=== PATIENT | male | born 1965 | race Caucasian/White ===

== ENCOUNTER 2019-02-02 11:16 | Inpatient (IN) | payer MEDICAID ==
[~2019-02-02] VITALS: Ht 170.2 cm; Wt 81.5 kg
[2019-02-02] MEDS ORDERED: LORAZEPAM 2 MG INJ IV STA (11:31)
[2019-02-02] MEDS ORDERED: SOD CHLORIDE 0.9% 1,000 ML IV STA (11:31)
--- NOTE | 2019-02-02 13:08 | ERD ---
ER Documentation Chief Complaint Chief Complaint biba possible etoh, found sitting in truck family called HPI 53-year-old male brought to the emergency department by paramedics with concerns over alcohol utilization. Patient is a very poor historian. According to the paramedics, patient's been drinking alcohol heavily. It is unclear when the patient's last intake was. Patient provides no further insight and appears unable to provide any significant history. ROS All systems reviewed and are negative except as per history of present illness. PMhx/Soc Medical and Surgical Hx: pt denies Medical Hx, pt denies Surgical Hx Hx Alcohol Use: Yes Hx Substance Use: No Hx Tobacco Use: No Smoking Status: Former smoker Physical Exam Vitals Vital Signs Date Temp Pulse Resp B/P (MAP) Pulse Ox O2 O2 Flow FiO2 Time Delivery Rate 02/02/19 98.9 67 18 156/95 100 11:31 (115) Physical Exam GENERAL: Disheveled male. He is altered. HEENT: Pupils equal, round, and reactive to light. EOMI. There is no scleral icterus. NECK: C-spine is soft and supple, there is no meningismus. There is no cervical lymphadenopathy. LUNGS: Clear to auscultation bilaterally. There are no rales, wheezes or rhonchi. HEART: Regular rate and rhythm, no murmurs, clicks, rubs or gallops. ABDOMEN: Soft, non-tender, non-distended. There are bowel sounds in all four quadrants. No rebound or guarding. EXTREMITIES: There is no peripheral cyanosis or edema. No focal swelling or erythema. NEURO: The patient moves all four extremities with 5/5 strength. Cranial nerves II - XII are intact. Patient is awake and follows commands. He has a resting tremor. SKIN: There is no apparent rash or petechiae. HEME/LYMPHATIC: There is no evidence of excessive bruising or lymphedema. PSYCHIATRIC: The patient does not appear anxious or depressed. Result Diagram: 02/02/19 1208 02/02/19 1208 Results 24 hrs Laboratory Tests Test 02/02/19 12:07 02/02/19 12:08 Urine Color NADIA Urine Clarity CLEAR Urine pH 7.0 Urine Specific [place] 1.027 Urine Ketones 1+ mg/dL Urine Nitrite NEGATIVE mg/dL Urine Bilirubin NEGATIVE mg/dL Urine Urobilinogen 2+ mg/dL Urine Leukocyte Esterase NEGATIVE Gilbert/ul Urine Microscopic RBC 41 /HPF Urine Microscopic WBC 2 /HPF Urine Hemoglobin 2+ mg/dL Urine Glucose 3+ mg/dL Urine Total Protein 1+ mg/dl White Blood Count 3.9 10^3/ul Red Blood Count 3.39 10^6/ul Hemoglobin 9.6 g/dl Hematocrit 29.7 % Mean Corpuscular Volume 87.6 fl Mean Corpuscular Hemoglobin 28.3 pg Mean Corpuscular Hemoglobin Concent 32.3 g/dl Red Cell Distribution Width 21.7 % Platelet Count 23 10^3/UL Mean Platelet Volume fl Immature Granulocytes % 0.800 % Neutrophils % 83.0 % Segmented Neutrophils % (Manual) 89 % Band Neutrophils % (Manual) 4 % Lymphocytes % 6.4 % Lymphocytes % (Manual) 4 % Monocytes % 9.5 % Monocytes % (Manual) 3 % Eosinophils % 0.0 % Basophils % 0.3 % Nucleated Red Blood Cells % 1 % Immature Granulocytes # 0.030 10^3/ul Neutrophils # 3.2 10^3/ul Neutrophils # (Manual) 3.5 10^3/ul Band Neutrophils # 0.1 10^3/ul Lymphocytes (Manual) 0.1 10^3/ul Lymphocytes # 0.3 10^3/ul Monocytes # 0.4 10^3/ul Monocytes # (Manual) 0.1 10^3/ul Eosinophils # 0.0 10^3/ul Basophils # 0.0 10^3/ul Nucleated Red Blood Cells # 0.0 10^3/ul Pathologist Review (Hematology) YES Platelet Estimate DECREASED Polychromasia 1+ Hypochromasia 3+ Anisocytosis 1+ Macrocytosis 1+ Sodium Level 141 mmol/L Potassium Level 3.5 mmol/L Chloride Level 106 mmol/L Carbon Dioxide Level 26 mmol/L Anion Gap 9 Blood Urea Nitrogen 16 mg/dl Creatinine 0.51 mg/dl Est Glomerular Filtrat Rate mL/min > 60 mL/min Glucose Level 192 mg/dl Calcium Level 8.7 mg/dl Total Bilirubin 3.9 mg/dl Direct Bilirubin 0.90 mg/dl Indirect Bilirubin 3.0 mg/dl Aspartate Amino Transf (AST/SGOT) 161 IU/L Alanine Aminotransferase (ALT/SGPT) 80 IU/L Alkaline Phosphatase 179 IU/L Total Protein 7.2 g/dl Albumin 3.5 g/dl Globulin 3.70 g/dl Albumin/Globulin Ratio 0.94 Salicylates Level < 1.0 mg/dl Acetaminophen Level < 10.0 ug/ml Ethyl Alcohol Level 13.0 mg/dl Current Medications Medications Dose Sig/Carol Start Time Status Last (Trade) Ordered Route PRN Stop Time Admin Dose Reason Admin Sodium 1,000 ml @ Q1H STAT 02/02/19 DC 02/02/19 Chloride 1,000 mls/hr IV 11:31 02/02/19 12:37 12:30 Lorazepam 1 mg ONCE STAT 02/02/19 DC 02/02/19 (Ativan) IV 11:31 02/02/19 12:37 11:32 Procedures/MDM Patient was taken to a room, seen and evaluated. Comfort measures were initiated. Diagnostic tests were ordered and reviewed. 3 LEAD RHYTHM STRIP: Normal sinus rhythm without ectopy RADIOLOGY: Reviewed with the radiologist CONSULTATION: Hospitalist was notified for admission REEVALUATION: 1300: Diagnostic tests were appreciated. Patient was reevaluated. He continued to have a resting tremor did not appear able to take care of himself decision was made to admit him to the hospital. MEDICAL DECISION MAKIN-year-old male presents the emergency department with what appears to be severe alcohol withdrawal. This time, I am not comfortable that he is able to care for himself despite Ativan and supportive care in the emergency department. Patient will be admitted for further supportive management. Departure Diagnosis: Primary Impression: Alcohol withdrawal Condition: JASMEET Granados Feb 02, 2019 13:07
[2019-02-02] MEDS ORDERED: NACL 0.9% 3 ML SYG IV SCH (15:30)
[2019-02-02] MEDS ORDERED: ONDANSETRON 4 MG INJ IV PRN (15:30)
[2019-02-02] MEDS ORDERED: MAGNESIUM HYDROXIDE 30ML CUP PO PRN (15:30)
[2019-02-02] MEDS ORDERED: DOCUSATE SODIUM 100 MG CAP PO PRN (15:30)
[2019-02-02] MEDS ORDERED: ACETAMINOPHEN 325 MG TAB PO PRN (15:30)
--- NOTE | 2019-02-02 15:47 | HP ---
Date/Time of Note Date/Time of Note DATE: 02/02/19 TIME: 15:35 Assessment/Plan VTE Prophylaxis SCD applied (from Nsg): Yes Pharmacological prophylaxis: NA/contraindicated Pharm contraindication: thrombocytopenia Lines/Catheters IV Catheter Type (from Nrsg): Saline Lock Assessment/Plan Assessment/Plan 1. Acute alcohol intoxication - will start banana bag, IV, and Librium given risk of withdrawal symptoms - monitor for DTs - Ativan PRN - will supervisor counseling and guidance about importance of cessation when more sober - ETOH levels noted 2. Alcoholic hepatitis - LFT elevation consistent with etoh abuse. AST>ALT - will check hepatitis panel - RUQ US to assess for cirrhosis 3. Pancytopenia - most likely has cirrhosis - no yobani bleeding appreciated. No need to transfuse at this time until plt drop below 10K or actively bleeding - will check iron levels 4. Diet - cardiac 5. DVT ppx - SCD 6. GI ppx - PPI 7. Disposition - Will admit to med surg for close monitoring of alcohol withdrawal and DTs. Patient also found with anemia and severe thrombocytopenia which will need to be monitored and transfused if hgb <7 and plt <10K or actively bleeding Result Diagram: 02/02/19 1208 02/02/19 1208 Results 24hrs Laboratory Tests Test 02/02/19 12:07 02/02/19 12:08 Urine Color NADIA Urine Clarity CLEAR Urine pH 7.0 Urine Specific [place] 1.027 Urine Ketones 1+ H Urine Nitrite NEGATIVE Urine Bilirubin NEGATIVE Urine Urobilinogen 2+ H Urine Leukocyte Esterase NEGATIVE Urine Microscopic RBC 41 H Urine Microscopic WBC 2 Urine Hemoglobin 2+ H Urine Glucose 3+ H Urine Total Protein 1+ H Urine Opiates Screen Negative Urine Barbiturates Negative Urine Amphetamines Screen Negative Urine Benzodiazepines Screen Negative Urine Cocaine Screen Negative Urine Cannabinoids Negative White Blood Count 3.9 L Red Blood Count 3.39 L Hemoglobin 9.6 L Hematocrit 29.7 L Mean Corpuscular Volume 87.6 Mean Corpuscular Hemoglobin 28.3 L Mean Corpuscular Hemoglobin Concent 32.3 Red Cell Distribution Width 21.7 H Platelet Count 23 *L Mean Platelet Volume Immature Granulocytes % 0.800 H Neutrophils % 83.0 H Segmented Neutrophils % (Manual) 89 H Band Neutrophils % (Manual) 4 Lymphocytes % 6.4 L Lymphocytes % (Manual) 4 L Monocytes % 9.5 Monocytes % (Manual) 3 Eosinophils % 0.0 Basophils % 0.3 Nucleated Red Blood Cells % 1 H Immature Granulocytes # 0.030 Neutrophils # 3.2 Neutrophils # (Manual) 3.5 Band Neutrophils # 0.1 Lymphocytes (Manual) 0.1 L Lymphocytes # 0.3 L Monocytes # 0.4 Monocytes # (Manual) 0.1 L Eosinophils # 0.0 Basophils # 0.0 Nucleated Red Blood Cells # 0.0 Pathologist Review (Hematology) YES Platelet Estimate DECREASED Polychromasia 1+ Hypochromasia 3+ Anisocytosis 1+ Macrocytosis 1+ Sodium Level 141 Potassium Level 3.5 Chloride Level 106 Carbon Dioxide Level 26 Anion Gap 9 Blood Urea Nitrogen 16 Creatinine 0.51 L Est Glomerular Filtrat Rate mL/min > 60 Glucose Level 192 Calcium Level 8.7 Total Bilirubin 3.9 H Direct Bilirubin 0.90 H Indirect Bilirubin 3.0 H Aspartate Amino Transf (AST/SGOT) 161 H Alanine Aminotransferase (ALT/SGPT) 80 H Alkaline Phosphatase 179 H Total Protein 7.2 Albumin 3.5 Globulin 3.70 H Albumin/Globulin Ratio 0.94 Salicylates Level < 1.0 L Acetaminophen Level < 10.0 L Ethyl Alcohol Level 13.0 H HPI/ROS Admit Date/Time Admit Date/Time 02/02/19 1530 Hx of Present Illness 53 yo M with no reported PMH presented to ED after found in his truck by family with suspicion of being intoxicated. Patient admits to drinking alcohol this am but unable to understand further information given patient continues to mumble. Patient denies drinking alcohol daily or any other substance use. 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 Admits to feeling restless and has been burping with small amount of vomit but denies any nausea. Patient denies any chest pain, shortness of breath, dizziness, palpitations, abdominal pain, or urinary issues. ROS All 12 systems reviewed and pertinent positives as per HPI. All others negative. Constitutional: fatigue; No chills, No nausea Eyes: No discharge ENT: No discharge Respiratory: No cough, No shortness of breath, No sputum, No wheezing Cardiovascular: No chest pain, No lightheadedness, No palpitations Gastrointestinal: vomiting; No pain, No constipation, No diarrhea, No nausea Genitourinary: no complaints Musculoskeletal: no complaints Skin: No bruising, No laceration, No rash Neurologic: confusion; No dizziness, No focal-weakness, No syncope Endocrine: no complaints Lymphatic: no complaints Psychological: confusion Immunologic: no complaints PMH/Family/Social Past Medical History Medical History: no pertinent history Coded Allergies: No Known Allergy (Unverified , 02/02/19) Past Surgical History Past Surgical Hx: no surgical history Family History Significant Family History: no pertinent family hx Social History Alcohol Use: heavy Smoking Status: Former smoker Drug Use: none Exam/Review of Systems Vital Signs Vitals Vital Signs Date Temp Pulse Resp B/P (MAP) Pulse Ox O2 O2 Flow FiO2 Time Delivery Rate 02/02/19 58 18 139/60 100 Room Air 13:00 (86) 02/02/19 98.9 11:31 Exam Exam General: Patient is laying in bed, tremulous, mumbling. answering simple questions appropriately. disheveled Head: Normocephalic atraumatic Eyes: EOMI, pupils reactive to light. mild scleral icterus Neck: Supple, nontender, midline Respiratory: Clear to auscultation bilaterally. no wheezing or rhonchi Cardiovascular: S1, S2, regular rate and rhythm,, no obvious murmurs Gastrointestinal: soft, non-tender to palpation, nondistended, bowel sounds heard. Neurological: Moves all extremities spontaneously Skin: No new skin lesions. Additional Comments No home medications PROCEDURE: CT Brain without contrast. CLINICAL INDICATION: Medical clearance. TECHNIQUE: A CT of the brain without contrast was performed utilizing axial sections from the skull base through the vertex. One or more the following does reduction techniques were utilized: Automated exposure control, adjustment of the mA/ or kV according to patient's size, or use of iterative reconstruction technique. Total exam CTDIvol is 39 MGy and DLP is 634 mGy-cm. DICOM images are available. COMPARISON: None available. FINDINGS: The ventricles and sulci are mildly prominent indicative of volume loss. There is no intracranial hemorrhage, mass effect or midline shift. No abnormal intra- axial or extra-axial fluid collections are seen. The amezcua/white matter differentiation is preserved. There are mild foci of hypoattenuation in the white matter, which are nonspecific in etiology but likely reflect chronic small vessel ischemic changes. There are mild intracranial vascular calcifications consistent with atherosclerosis. The visualized paranasal sinuses are essentially clear. IMPRESSION: 1. No acute intracranial hemorrhage, transcortical infarction or mass effect. 2. Mild chronic small vessel ischemic changes. 3. Mild generalized cerebral volume loss. RPTAT: HH .Anna Miller MD, Date Time Electronically viewed and signed by .Anna Miller MD, on 02/02/2019 12:23 LYNNETTE RILEY MD Feb 02, 2019 15:47
[2019-02-02] MEDS: CHLORDIAZEPOXIDE 25 MG CAP PO SCH ×2 (15:58→22:46)
[2019-02-02] MEDS: SOD CHLORIDE 0.9% 1,000 ML IV SCH (15:58)
[2019-02-02] MEDS ORDERED: hydrALAzine 20 MG INJ IV PRN (16:00)
[2019-02-02] MEDS: MULTIVITAMINS 10 ML, THIAMINE 100 MG, FOLIC ACID 1 MG in SOD CHLORIDE 0.9% 1,000 ML IVPB SCH (16:19)
[2019-02-02 17:45] VITALS: BP 139/66; PULSE 55; RESP 16
[2019-02-02 18:00] VITALS: Ht 170.2 cm; Wt 81.5 kg
[2019-02-02 19:36] VITALS: BP 133/70; PULSE 66; RESP 16
[2019-02-02] MEDS: LORAZEPAM 2 MG INJ IV PRN (19:39)
[2019-02-03] MEDS: SOD CHLORIDE 0.9% 1,000 ML IV SCH ×4 (01:20→21:20)
[2019-02-03] MEDS: PANTOPRAZOLE IV 80 MG in SOD CHLORIDE 0.9% 100 ML IV SCH ×3 (01:36→21:59)
[2019-02-03] MEDS: LORAZEPAM 2 MG INJ IV PRN (01:47)
[2019-02-03 02:44] VITALS: BP 140/75; PULSE 70; RESP 16
[2019-02-03] MEDS ORDERED: PANTOPRAZOLE 40 MG INJ IV SCH (06:00)
[2019-02-03 08:05] VITALS: BP 143/72; PULSE 74; RESP 18
[2019-02-03] MEDS: MULTIVITAMINS 10 ML, THIAMINE 100 MG, FOLIC ACID 1 MG in SOD CHLORIDE 0.9% 1,000 ML IVPB SCH (08:33)
[2019-02-03] MEDS: CHLORDIAZEPOXIDE 25 MG CAP PO SCH ×3 (08:33→22:30)
[2019-02-03] MEDS ORDERED: MULTIVITAMINS 10 ML, THIAMINE 100 MG, FOLIC ACID 1 MG in SOD CHLORIDE 0.9% 1,000 ML IVPB SCH (09:00)
[2019-02-03] MEDS ORDERED: POTASSIUM CHLORIDE (SR) 20 MEQ TAB PO STA (09:03)
--- NOTE | 2019-02-03 09:05 | PN ---
Date/Time of Note Date/Time of Note DATE: 02/03/19 TIME: 09:05 Assessment/Plan VTE Prophylaxis Risk score (from [facility] [place])>0 risk: 3 SCD applied (from [facility] [place]): Yes Pharmacological prophylaxis: NA/contraindicated Pharm contraindication: thrombocytopenia Lines/Catheters IV [facility] Saline Lock Urinary Cath still in place: No Assessment/Plan Assessment/Plan 1. Acute alcohol intoxication - Continue current treatment and monitor for DTS - Will continue Librium taper and deescalate to BID tomorrow - Ativan PRN - cessation counseling offered but patient still appears to be detoxing - ETOH levels noted 2. Alcoholic hepatitis - LFT elevation consistent with etoh abuse but trending down today - hepatitis panel negative - RUQ US shows severe hepatic steatosis 3. Anemia, ?blood loss - patient admitted to hematemesis prior to admission but denies any currently bleeding - GI consultation placed for possible EGD to assess - no need for transfusion at this time - iron levels noted 4. Severe thrombocytopenia - plt 22 this am but no yobani bleeding appreciated. Will transfuse if active bleeding appreciated or platelets drop below 10K - continue monitoring at this time. Liver failure is most likely etiology 5. hypokalemia - replaced 6. Disposition - GI consultation placed give patients reported hematemesis - Continue alcohol withdrawal treatment Result Diagram: 02/03/19 0558 02/03/19 0558 Results 24hrs Laboratory Tests Test 02/02/19 12:07 02/02/19 12:08 02/02/19 23:04 02/03/19 05:58 Urine Color NADIA Urine Clarity CLEAR Urine pH 7.0 Urine Specific [place] 1.027 Urine Ketones 1+ H Urine Nitrite NEGATIVE Urine Bilirubin NEGATIVE Urine Urobilinogen 2+ H Urine Leukocyte Esterase NEGATIVE Urine Microscopic RBC 41 H Urine Microscopic WBC 2 Urine Hemoglobin 2+ H Urine Glucose 3+ H Urine Total Protein 1+ H Iron Level 250 H Total Iron Binding 293 Capacity Percent Iron Saturation 85 H Urine Opiates Screen Negative Urine Barbiturates Negative Urine Amphetamines Negative Screen Urine Benzodiazepines Negative Screen Urine Cocaine Screen Negative Urine Cannabinoids Negative Hepatitis B Surface NEGATIVE Antigen Hepatitis B Core NEGATIVE Total Antibody Hepatitis C Antibody NEGATIVE White Blood Count 3.9 L 4.6 L 3.4 #L Red Blood Count 3.39 L 2.91 L 2.80 L Hemoglobin 9.6 L 8.5 L 8.2 L Hematocrit 29.7 L 25.7 L 25.0 L Mean Corpuscular Volume 87.6 88.3 89.3 Mean Corpuscular 28.3 L 29.2 29.3 Hemoglobin Mean Corpuscular 32.3 33.1 32.8 Hemoglobin Concent Red Cell Distribution 21.7 H 21.7 H 21.9 H Width Platelet Count 23 *L 24 *L 22 *L Mean Platelet Volume Immature Granulocytes % 0.800 H 0.600 H 0.600 H Neutrophils % 83.0 H 81.7 H Segmented Neutrophils 89 H 78 H % (Manual) Band Neutrophils % 4 2 (Manual) Lymphocytes % 6.4 L 6.7 L Lymphocytes % (Manual) 4 L 16 Monocytes % 9.5 10.6 Monocytes % (Manual) 3 3 Eosinophils % 0.0 0.2 Basophils % 0.3 0.2 Nucleated Red Blood 1 H 0.4 H 1 H Cells % Immature Granulocytes # 0.030 0.030 0.020 Neutrophils # 3.2 3.8 Neutrophils # (Manual) 3.5 2.7 Band Neutrophils # 0.1 0.0 Lymphocytes (Manual) 0.1 L 0.5 L Lymphocytes # 0.3 L 0.3 L Monocytes # 0.4 0.5 Monocytes # (Manual) 0.1 L 0.1 L Eosinophils # 0.0 0.0 Basophils # 0.0 0.0 Nucleated Red Blood 0.0 0.0 Cells # Pathologist YES Review (Hematology) Platelet Estimate DECREASED DECREASED Polychromasia 1+ 1+ Hypochromasia 3+ 1+ Anisocytosis 1+ 2+ Macrocytosis 1+ 2+ Sodium Level 141 141 Potassium Level 3.5 3.3 L Chloride Level 106 111 H Carbon Dioxide Level 26 25 Anion Gap 9 5 Blood Urea Nitrogen 16 15 Creatinine 0.51 L 0.54 L Est Glomerular Filtrat > 60 > 60 Rate mL/min Glucose Level 192 129 # Calcium Level 8.7 8.2 L Total Bilirubin 3.9 H 2.4 H Direct Bilirubin 0.90 H 0.20 # Indirect Bilirubin 3.0 H 2.2 H Aspartate Amino 161 H 106 H Transf (AST/SGOT) Alanine 80 H 62 Aminotransferase (ALT/SG PT) Alkaline Phosphatase 179 H 140 H Total Protein 7.2 6.1 # Albumin 3.5 2.8 L Globulin 3.70 H 3.30 H Albumin/Globulin Ratio 0.94 0.84 Salicylates Level < 1.0 L Acetaminophen Level < 10.0 L Ethyl Alcohol Level 13.0 H Basophils % (Manual) 1 Basophils # (Manual) 0.0 Target Cells 1+ Magnesium Level 2.0 Subjective 24 Hr Interval Summary Free Text/Dictation Patient is complaining of feeling weak this am. Admitted to hematemesis prior to admission when discussed pancytopenia. Exam/Review of Systems Exam Vitals Vital Signs Date Temp Pulse Resp B/P (MAP) Pulse Ox O2 O2 Flow FiO2 Time Delivery Rate 02/03/19 98.6 74 18 143/72 98 Room Air 08:05 (95) Intake and Output 02/02/19 02/02/19 02/03/19 1515:00 23:00 07:00 IntakeIntake Total 100 ml 2161.2 ml OutputOutput Total 400 ml BalanceBalance -300 ml 2161.2 ml Exam General: Patient is laying in bed, answering questions appropriately. periods of confusion Eyes: EOMI, pupils reactive to light. mild scleral icterus Neck: Supple, nontender, midline Respiratory: Clear to auscultation bilaterally. no wheezing or rhonchi Cardiovascular: S1, S2, regular rate and rhythm,, no obvious murmurs Gastrointestinal: soft, non-tender to palpation, nondistended, bowel sounds heard. Neurological: Moves all extremities spontaneously Skin: No new skin lesions. Results Results 24hrs Laboratory Tests Test 02/02/19 12:07 02/02/19 12:08 02/02/19 23:04 02/03/19 05:58 Urine Color NADIA Urine Clarity CLEAR Urine pH 7.0 Urine Specific [place] 1.027 Urine Ketones 1+ H Urine Nitrite NEGATIVE Urine Bilirubin NEGATIVE Urine Urobilinogen 2+ H Urine Leukocyte Esterase NEGATIVE Urine Microscopic RBC 41 H Urine Microscopic WBC 2 Urine Hemoglobin 2+ H Urine Glucose 3+ H Urine Total Protein 1+ H Iron Level 250 H Total Iron Binding 293 Capacity Percent Iron Saturation 85 H Urine Opiates Screen Negative Urine Barbiturates Negative Urine Amphetamines Negative Screen Urine Benzodiazepines Negative Screen Urine Cocaine Screen Negative Urine Cannabinoids Negative Hepatitis B Surface NEGATIVE Antigen Hepatitis B Core NEGATIVE Total Antibody Hepatitis C Antibody NEGATIVE White Blood Count 3.9 L 4.6 L 3.4 #L Red Blood Count 3.39 L 2.91 L 2.80 L Hemoglobin 9.6 L 8.5 L 8.2 L Hematocrit 29.7 L 25.7 L 25.0 L Mean Corpuscular Volume 87.6 88.3 89.3 Mean Corpuscular 28.3 L 29.2 29.3 Hemoglobin Mean Corpuscular 32.3 33.1 32.8 Hemoglobin Concent Red Cell Distribution 21.7 H 21.7 H 21.9 H Width Platelet Count 23 *L 24 *L 22 *L Mean Platelet Volume Immature Granulocytes % 0.800 H 0.600 H 0.600 H Neutrophils % 83.0 H 81.7 H Segmented Neutrophils 89 H 78 H % (Manual) Band Neutrophils % 4 2 (Manual) Lymphocytes % 6.4 L 6.7 L Lymphocytes % (Manual) 4 L 16 Monocytes % 9.5 10.6 Monocytes % (Manual) 3 3 Eosinophils % 0.0 0.2 Basophils % 0.3 0.2 Nucleated Red Blood 1 H 0.4 H 1 H Cells % Immature Granulocytes # 0.030 0.030 0.020 Neutrophils # 3.2 3.8 Neutrophils # (Manual) 3.5 2.7 Band Neutrophils # 0.1 0.0 Lymphocytes (Manual) 0.1 L 0.5 L Lymphocytes # 0.3 L 0.3 L Monocytes # 0.4 0.5 Monocytes # (Manual) 0.1 L 0.1 L Eosinophils # 0.0 0.0 Basophils # 0.0 0.0 Nucleated Red Blood 0.0 0.0 Cells # Pathologist YES Review (Hematology) Platelet Estimate DECREASED DECREASED Polychromasia 1+ 1+ Hypochromasia 3+ 1+ Anisocytosis 1+ 2+ Macrocytosis 1+ 2+ Sodium Level 141 141 Potassium Level 3.5 3.3 L Chloride Level 106 111 H Carbon Dioxide Level 26 25 Anion Gap 9 5 Blood Urea Nitrogen 16 15 Creatinine 0.51 L 0.54 L Est Glomerular Filtrat > 60 > 60 Rate mL/min Glucose Level 192 129 # Calcium Level 8.7 8.2 L Total Bilirubin 3.9 H 2.4 H Direct Bilirubin 0.90 H 0.20 # Indirect Bilirubin 3.0 H 2.2 H Aspartate Amino 161 H 106 H Transf (AST/SGOT) Alanine 80 H 62 Aminotransferase (ALT/SG PT) Alkaline Phosphatase 179 H 140 H Total Protein 7.2 6.1 # Albumin 3.5 2.8 L Globulin 3.70 H 3.30 H Albumin/Globulin Ratio 0.94 0.84 Salicylates Level < 1.0 L Acetaminophen Level < 10.0 L Ethyl Alcohol Level 13.0 H Basophils % (Manual) 1 Basophils # (Manual) 0.0 Target Cells 1+ Magnesium Level 2.0 Medications Medication Current Medications Sodium Chloride 1,000 ml @ 100 mls/hr Q10H IV Last administered on 02/03/19at 0 6:27; Admin Dose 100 MLS/HR; Start 02/02/19 at 15:20 IV Flush (NS 3 ml) 3 ml PER PROTOCOL IV ; Start 02/02/19 at 15:30 Ondansetron HCl (Zofran Inj) 4 mg Q6H PRN IV NAUSEA/VOMITING Last administered on 02/02/19 16:07; Admin Dose 4 MG; Start 02/02/19 at 15:30 Acetaminophen (Tylenol Tab) 650 mg Q6H PRN PO .PAIN 1-3 OR TEMP; Start 02/02/19 at 15:30 Docusate Sodium (Colace) 100 mg Q12H PRN PO .CONSTIPATION; Start 02/02/19 at 15:30 Magnesium Hydroxide (Milk Of Mag) 30 ml DAILY PRN PO .CONSTIPATION; Start 02/02/19 at 15:30 Chlordiazepoxide (Librium) 50 mg TID PO Last administered on 02/03/19 08:33; Ad min Dose 50 MG; Start 02/02/19 at 15:30 Lorazepam (Ativan) 1 mg Q2 PRN IV agitation, withdrawal Last administered on 02/03/19 01:47; Admin Dose 1 MG; Start 02/02/19 at 15:30 Multivitamins 10 ml/Thiamine HCl 100 mg/Folic Acid 1 mg/Sodium Chloride 1,011.2 ml @ 125 mls/ hr DAILY@09 IVPB Last administered on 02/03/19 08:33; Admin Dose 125 MLS/HR; Start 02/02/19 at 15:30 Hydralazine HCl (Apresoline) 10 mg Q4H PRN IV SBP >170; Start 02/02/19 at 16:00 Pantoprazole 80 mg/Sodium Chloride 100 ml @ 10 mls/hr Q10H IV Last administered on 02/03/19 01:36; Admin Dose 10 MLS/HR; Start 02/03/19 at 00:00 Potassium Chloride (Klor-Con 20) 40 meq ONCE STAT PO ; Start 02/03/19 at 09:03; Stop 02/03/19 at 09:04; Status UNV LYNNETTE RILEY MD Feb 03, 2019 09:05
[2019-02-03 14:09] VITALS: BP 153/76; PULSE 71; RESP 18
--- NOTE | 2019-02-03 16:28 | CONS ---
Assessment/Plan Assessment/Plan Hospital Course (Demo Recall) Summary Assessment and Plan: Assessment: Hematemesis Alcoholic hepatitis- will order Pt to calculate discriminant function Elevated LFTs with Indirect hyperbilirubinemia -Hepatitis panel negative Pancytopenia 02/03/19 -Plt- 22 -Hgb 8.2 -Wbc 3.4 Alcoholism Plan: Continue PPI gtt NPO after midnight EGD tomorrow Plt transfusion Endoscopy - risks/benefits/alternatives/indications of procedure and sedation/anesthesia discussed with patient who states understanding and gives informed consent to proceed. Will order PT/INR- to calculate DF MRCP- to c/o cbd obstruction Patient seen in collaboration with Dr. Reyes CC: CHRISTIAN REYES MD ; Consultation Date/Type/Reason Admit Date/Time 02/02/19 1530 Date of Consultation: Feb 03, 2019 Type of Consult GI Reason for Consultation Hematemesis Date/Time of Note DATE: 02/03/19 TIME: 16:11 Hx of Present Illness This is a 53 year odl male with PMH of alcoholism found in his truck by family with suspicion of being intoxicated to the ED for further evaluation. Patient at that time was admitted to multiple episodes of hematemesis. On admission patient's hemoglobin was 9.6 and platelet count 23 rechecked this morning hemoglobin is 8.2 platelet count of 22 as well imaging was obtained including abdominal ultrasound showing severe hepatic steatosis, multiple gallstones without gallbladder wall thickening or biliary dilation. She has been consulted for further evaluation regarding hematemesis patient is currently on a PPI drip is resting in bed awake alert and oriented forgetful at times discussed plan for EGD reviewed risks/benefits of both procedure and sedation patient verbalized understanding and is agreeable. We recommended 1 units platelet transfusion prior to EGD on 02/04/19 Review of Systems: A 12 system, review was conducted and is negative except as noted in the HPI or here. Past Medical History Medical History: no pertinent history Home Meds No Active Prescriptions or Reported Meds Medications Current Medications Sodium Chloride 1,000 ml @ 100 mls/hr Q10H IV Last administered on 02/03/19at 06:27; Admin Dose 100 MLS/HR; Start 02/02/19 at 15:20 IV Flush (NS 3 ml) 3 ml PER PROTOCOL IV ; Start 02/02/19 at 15:30 Ondansetron HCl (Zofran Inj) 4 mg Q6H PRN IV NAUSEA/VOMITING Last administered on 02/02/19at 16:07; Admin Dose 4 MG; Start 02/02/19 at 15:30 Acetaminophen (Tylenol Tab) 650 mg Q6H PRN PO .PAIN 1-3 OR TEMP; Start 02/02/19 at 15:30 Docusate Sodium (Colace) 100 mg Q12H PRN PO .CONSTIPATION; Start 02/02/19 at 15:30 Magnesium Hydroxide (Milk Of Mag) 30 ml DAILY PRN PO .CONSTIPATION; Start 02/02/19 at 15:30 Chlordiazepoxide (Librium) 50 mg TID PO Last administered on 02/03/19at 12:34; Admin Dose 50 MG; Start 02/02/19 at 15:30; Stop 02/03/19 at 23:55 Lorazepam (Ativan) 1 mg Q2 PRN IV agitation, withdrawal Last administered on 02/03/19at 01:47; Admin Dose 1 MG; Start 02/02/19 at 15:30 Multivitamins 10 ml/Thiamine HCl 100 mg/Folic Acid 1 mg/Sodium Chloride 1,011.2 ml @ 125 mls/ hr DAILY@09 IVPB Last administered on 02/03/19at 08:33; Admin Dose 125 MLS/HR; Start 02/02/19 at 15:30 Hydralazine HCl (Apresoline) 10 mg Q4H PRN IV SBP >170; Start 02/02/19 at 16:00 Pantoprazole 80 mg/Sodium Chloride 100 ml @ 10 mls/hr Q10H IV Last administered on 02/03/19at 10:48; Admin Dose 10 MLS/HR; Start 02/03/19 at 00:00 Chlordiazepoxide (Librium) 50 mg BID PO ; Start 02/04/19 at 09:00 Allergies: Coded Allergies: No Known Allergy (Unverified , 02/02/19) Past Surgical History Past Surgical Hx: no surgical history Social History Alcohol Use: heavy Smoking Status: Former smoker Drug Use: none Exam/Review of Systems Exam Vitals Vital Signs Date Temp Pulse Resp B/P (MAP) Pulse Ox O2 O2 Flow FiO2 Time Delivery Rate 02/03/19 98.3 71 18 153/76 96 Room Air 14:09 (101) Intake and Output 4/01/1802/02/19 02/03/19 1515:00 23:00 07:00 IntakeIntake Total 100 ml 2161.2 ml OutputOutput Total 400 ml BalanceBalance -300 ml 2161.2 ml Exam PHYSICAL EXAMINATION: GENERAL: Alert & oriented x 3, in no acute distress, forgetful SKIN: No lesions HEAD: Normocephalic, atraumatic, no tenderness. EYES: Pupils equal reactive to light, no discharge. EARS/NOSE AND THROAT: Ears normal, nose normal NECK: Supple, no masses CHEST: Inspection within normal limits. CARDIOVASCULAR: Heart: Regular rate and rhythm RESPIRATORY: Lungs clear to auscultation GASTROINTESTINAL AND LIVER: Abdomen: Soft, non tenderness, non-distended, no hernias, no masses, no organomegaly, no ascites, no guarding, no rebound tenderness, normoactive bowel sounds. Rectal: Deferred. EXTREMITIES: No cyanosis, clubbing or edema. Results Result Diagram: 02/03/19 0558 02/03/19 0558 Results 24hrs Laboratory Tests Test 02/02/19 23:04 02/03/19 05:58 White Blood Count 4.6 L 3.4 #L Red Blood Count 2.91 L 2.80 L Hemoglobin 8.5 L 8.2 L Hematocrit 25.7 L 25.0 L Mean Corpuscular Volume 88.3 89.3 Mean Corpuscular Hemoglobin 29.2 29.3 Mean Corpuscular Hemoglobin Concent 33.1 32.8 Red Cell Distribution Width 21.7 H 21.9 H Platelet Count 24 *L 22 *L Mean Platelet Volume Immature Granulocytes % 0.600 H 0.600 H Neutrophils % 81.7 H Lymphocytes % 6.7 L Monocytes % 10.6 Eosinophils % 0.2 Basophils % 0.2 Nucleated Red Blood Cells % 0.4 H 1 H Immature Granulocytes # 0.030 0.020 Neutrophils # 3.8 Lymphocytes # 0.3 L Monocytes # 0.5 Eosinophils # 0.0 Basophils # 0.0 Nucleated Red Blood Cells # 0.0 Segmented Neutrophils % (Manual) 78 H Band Neutrophils % (Manual) 2 Lymphocytes % (Manual) 16 Monocytes % (Manual) 3 Basophils % (Manual) 1 Neutrophils # (Manual) 2.7 Band Neutrophils # 0.0 Lymphocytes (Manual) 0.5 L Monocytes # (Manual) 0.1 L Basophils # (Manual) 0.0 Platelet Estimate DECREASED Polychromasia 1+ Hypochromasia 1+ Anisocytosis 2+ Macrocytosis 2+ Target Cells 1+ Sodium Level 141 Potassium Level 3.3 L Chloride Level 111 H Carbon Dioxide Level 25 Anion Gap 5 Blood Urea Nitrogen 15 Creatinine 0.54 L Est Glomerular Filtrat Rate mL/min > 60 Glucose Level 129 # Calcium Level 8.2 L Magnesium Level 2.0 Total Bilirubin 2.4 H Direct Bilirubin 0.20 # Indirect Bilirubin 2.2 H Aspartate Amino Transf (AST/SGOT) 106 H Alanine Aminotransferase (ALT/SGPT) 62 Alkaline Phosphatase 140 H Total Protein 6.1 # Albumin 2.8 L Globulin 3.30 H Albumin/Globulin Ratio 0.84 Medications Medication Current Medications Sodium Chloride 1,000 ml @ 100 mls/hr Q10H IV Last administered on 02/03/19at 06:27; Admin Dose 100 MLS/HR; Start 02/02/19 at 15:20 IV Flush (NS 3 ml) 3 ml PER PROTOCOL IV ; Start 02/02/19 at 15:30 Ondansetron HCl (Zofran Inj) 4 mg Q6H PRN IV NAUSEA/VOMITING Last administered on 02/02/19at 16:07; Admin Dose 4 MG; Start 02/02/19 at 15:30 Acetaminophen (Tylenol Tab) 650 mg Q6H PRN PO .PAIN 1-3 OR TEMP; Start 02/02/19 at 15:30 Docusate Sodium (Colace) 100 mg Q12H PRN PO .CONSTIPATION; Start 02/02/19 at 15:30 Magnesium Hydroxide (Milk Of Mag) 30 ml DAILY PRN PO .CONSTIPATION; Start 02/02/19 at 15:30 Chlordiazepoxide (Librium) 50 mg TID PO Last administered on 02/03/19at 12:34; Admin Dose 50 MG; Start 02/02/19 at 15:30; Stop 02/03/19 at 23:55 Lorazepam (Ativan) 1 mg Q2 PRN IV agitation, withdrawal Last administered on 02/03/19at 01:47; Admin Dose 1 MG; Start 02/02/19 at 15:30 Multivitamins 10 ml/Thiamine HCl 100 mg/Folic Acid 1 mg/Sodium Chloride 1,011.2 ml @ 125 mls/ hr DAILY@09 IVPB Last administered on 02/03/19at 08:33; Admin Dose 125 MLS/HR; Start 02/02/19 at 15:30 Hydralazine HCl (Apresoline) 10 mg Q4H PRN IV SBP >170; Start 02/02/19 at 16:00 Pantoprazole 80 mg/Sodium Chloride 100 ml @ 10 mls/hr Q10H IV Last administered on 02/03/19at 10:48; Admin Dose 10 MLS/HR; Start 02/03/19 at 00:00 Chlordiazepoxide (Librium) 50 mg BID PO ; Start 02/04/19 at 09:00 KIA SAUCEDA Feb 03, 2019 16:23
[2019-02-03 20:00] VITALS: BP 146/84; PULSE 64; RESP 17
[2019-02-03 23:15] VITALS: BP 139/72; PULSE 66; RESP 18
[2019-02-03 23:30] VITALS: BP 136/75; PULSE 70; RESP 20
[2019-02-04] VITALS (13 sets, daily range): BP systolic 111–157; BP diastolic 68–89; PULSE 54–100; RESP 12–20
[2019-02-04] MEDS: SOD CHLORIDE 0.9% 1,000 ML IV SCH ×3 (03:54→17:20)
--- NOTE | 2019-02-04 08:29 | PN ---
Date/Time of Note Date/Time of Note DATE: 02/04/19 TIME: 08:29 Assessment/Plan VTE Prophylaxis Risk score (from Ns)>0 risk: 3 SCD applied (from [facility]): Yes Pharmacological prophylaxis: NA/contraindicated Pharm contraindication: bleeding Lines/Catheters IV Catheter Type (from [facility]): Peripheral IV Urinary Cath still in place: No Assessment/Plan Assessment/Plan 1. Acute alcohol intoxication- improving - patient no longer with tremors of upper extremities. Still with bouts of confusion - Monitor for DTs - Continue Librium taper daily - Ativan PRN - ETOH levels noted 2. Alcoholic hepatitis - LFTs continues to trend downward - hepatitis panel negative - RUQ US shows severe hepatic steatosis 3. Anemia, ?blood loss - hgb remains stable with no need for blood transfusion - no witnessed hematemesis since admission - GI on board and appreciate consultation. Plans for EGD today - iron levels noted 4. Severe thrombocytopenia - s/p platelet transfusion - levels stable this am 5. hypokalemia - replacing 6. Disposition - Plans for MRCP and EGD at some point today. Continue on Librium taper and monitoring for DTs Result Diagram: 02/04/19 0548 02/04/19 0550 Results 24hrs Laboratory Tests Test 02/03/19 16:25 02/04/19 05:48 02/04/19 05:50 Prothrombin Time 17.7 H Prothrombin Time Ratio 1.4 INR International Normalized Ratio 1.45 White Blood Count 3.1 L Red Blood Count 3.04 L Hemoglobin 8.8 L Hematocrit 27.0 L Mean Corpuscular Volume 88.8 Mean Corpuscular Hemoglobin 28.9 L Mean Corpuscular Hemoglobin Concent 32.6 Red Cell Distribution Width 21.1 H Platelet Count 39 #L Mean Platelet Volume Immature Granulocytes % 0.300 Neutrophils % 57.9 Lymphocytes % 24.6 Monocytes % 14.9 H Eosinophils % 1.3 Basophils % 1.0 Nucleated Red Blood Cells % 0.0 Immature Granulocytes # 0.010 Neutrophils # 1.8 Lymphocytes # 0.8 Monocytes # 0.5 Eosinophils # 0.0 Basophils # 0.0 Nucleated Red Blood Cells # 0.0 Sodium Level 140 Potassium Level 3.1 L Chloride Level 109 Carbon Dioxide Level 23 Anion Gap 8 Blood Urea Nitrogen 9 Creatinine 0.52 L Est Glomerular Filtrat Rate mL/min > 60 Glucose Level 104 Calcium Level 8.3 L Magnesium Level 1.9 Total Bilirubin 2.0 H Direct Bilirubin 0.20 Indirect Bilirubin 1.8 H Aspartate Amino Transf (AST/SGOT) 107 H Alanine Aminotransferase (ALT/SGPT) 63 Alkaline Phosphatase 178 H Total Protein 6.6 Albumin 3.0 L Globulin 3.60 H Albumin/Globulin Ratio 0.83 Subjective 24 Hr Interval Summary Free Text/Dictation Patient states hes feeling better and no longer experiencing shaking of his upper extremities. Remains NPO this am for EGD and MRCP. Still confused but admits to being homeless after losing apt last year. Exam/Review of Systems Exam Vitals Vital Signs Date Temp Pulse Resp B/P (MAP) Pulse Ox O2 O2 Flow FiO2 Time Delivery Rate 02/04/19 98.2 66 18 147/81 97 Room Air 07:58 (103) Intake and Output 02/03/19 02/03/19 02/04/19 1515:00 23:00 07:00 IntakeIntake Total 380 ml 1941.2 ml 1097 ml OutputOutput Total 600 ml BalanceBalance -220 ml 1941.2 ml 1097 ml Exam General: Patient is laying in bed, answering questions appropriately. periods of confusion Eyes: EOMI, pupils reactive to light. Respiratory: Clear to auscultation bilaterally. no wheezing or rhonchi Cardiovascular: S1, S2, regular rate and rhythm, no obvious murmurs Gastrointestinal: soft, non-tender to palpation, nondistended, bowel sounds heard. Neurological: Moves all extremities spontaneously Skin: No new skin lesions. Results Results 24hrs Laboratory Tests Test 02/03/19 16:25 02/04/19 05:48 02/04/19 05:50 Prothrombin Time 17.7 H Prothrombin Time Ratio 1.4 INR International Normalized Ratio 1.45 White Blood Count 3.1 L Red Blood Count 3.04 L Hemoglobin 8.8 L Hematocrit 27.0 L Mean Corpuscular Volume 88.8 Mean Corpuscular Hemoglobin 28.9 L Mean Corpuscular Hemoglobin Concent 32.6 Red Cell Distribution Width 21.1 H Platelet Count 39 #L Mean Platelet Volume Immature Granulocytes % 0.300 Neutrophils % 57.9 Lymphocytes % 24.6 Monocytes % 14.9 H Eosinophils % 1.3 Basophils % 1.0 Nucleated Red Blood Cells % 0.0 Immature Granulocytes # 0.010 Neutrophils # 1.8 Lymphocytes # 0.8 Monocytes # 0.5 Eosinophils # 0.0 Basophils # 0.0 Nucleated Red Blood Cells # 0.0 Sodium Level 140 Potassium Level 3.1 L Chloride Level 109 Carbon Dioxide Level 23 Anion Gap 8 Blood Urea Nitrogen 9 Creatinine 0.52 L Est Glomerular Filtrat Rate mL/min > 60 Glucose Level 104 Calcium Level 8.3 L Magnesium Level 1.9 Total Bilirubin 2.0 H Direct Bilirubin 0.20 Indirect Bilirubin 1.8 H Aspartate Amino Transf (AST/SGOT) 107 H Alanine Aminotransferase (ALT/SGPT) 63 Alkaline Phosphatase 178 H Total Protein 6.6 Albumin 3.0 L Globulin 3.60 H Albumin/Globulin Ratio 0.83 Medications Medication Current Medications Sodium Chloride 1,000 ml @ 100 mls/hr Q10H IV Last administered on 02/04/19at 03:54; Admin Dose 100 MLS/HR; Start 02/02/19 at 15:20 IV Flush (NS 3 ml) 3 ml PER PROTOCOL IV ; Start 02/02/19 at 15:30 Ondansetron HCl (Zofran Inj) 4 mg Q6H PRN IV NAUSEA/VOMITING Last administered on 02/02/19at 16:07; Admin Dose 4 MG; Start 02/02/19 at 15:30 Acetaminophen (Tylenol Tab) 650 mg Q6H PRN PO .PAIN 1-3 OR TEMP; Start 02/02/19 at 15:30 Docusate Sodium (Colace) 100 mg Q12H PRN PO .CONSTIPATION; Start 02/02/19 at 15:30 Magnesium Hydroxide (Milk Of Mag) 30 ml DAILY PRN PO .CONSTIPATION; Start 02/02/19 at 15:30 Lorazepam (Ativan) 1 mg Q2 PRN IV agitation, withdrawal Last administered on 02/03/19at 01:47; Admin Dose 1 MG; Start 02/02/19 at 15:30 Multivitamins 10 ml/Thiamine HCl 100 mg/Folic Acid 1 mg/Sodium Chloride 1,011.2 ml @ 125 mls/ hr DAILY@09 IVPB Last administered on 02/03/19at 08:33; Admin Dose 125 MLS/HR; Start 02/02/19 at 15:30 Hydralazine HCl (Apresoline) 10 mg Q4H PRN IV SBP >170; Start 02/02/19 at 16:00 Pantoprazole 80 mg/Sodium Chloride 100 ml @ 10 mls/hr Q10H IV Last administered on 02/03/19at 21:59; Admin Dose 10 MLS/HR; Start 02/03/19 at 00:00 Chlordiazepoxide (Librium) 50 mg BID PO ; Start 02/04/19 at 09:00 Potassium Chloride 100 ml @ 50 mls/hr Q2H IVPB ; Start 02/04/19 at 09:00; Stop 02/04/19 at 14:59 LYNNETTE RILEY MD Feb 04, 2019 08:29
[2019-02-04] MEDS: CHLORDIAZEPOXIDE 25 MG CAP PO SCH ×2 (08:34→20:17)
[2019-02-04] MEDS: PANTOPRAZOLE IV 80 MG in SOD CHLORIDE 0.9% 100 ML IV SCH (08:34)
[2019-02-04] MEDS: LORAZEPAM 2 MG INJ IV PRN ×2 (09:28→17:07)
[2019-02-04] MEDS: POTASSIUM CHLORIDE 100 ML IVPB SCH ×2 (09:28→12:30)
[2019-02-04] MEDS ORDERED: POTASSIUM CHLORIDE 20 MEQ in DEXTROSE 5% 100 ML IVPB SCH (13:00)
[2019-02-04] MEDS: MULTIVITAMINS 10 ML, THIAMINE 100 MG, FOLIC ACID 1 MG in SOD CHLORIDE 0.9% 1,000 ML IVPB SCH (14:20)
--- NOTE | 2019-02-04 15:39 | PREAC ---
Date/Time of Note Date/Time of Note DATE: 02/04/19 TIME: 15:37 Anesthesia Eval and Record Evaluation Time Pre-Procedure Interview DATE: 02/04/19 TIME: 15:37 Age 53 Sex male NPO: 8 hrs Preoperative diagnosis HEMATEMESIS Planned procedure EGD Past Medical History Past Medical History: Includes Hepatic: Alcohol abuse, Hepatitis, Cirrhosis Heme: Anemia Surgery & Anesthesia Issues No known issue Meds Anticoagulation: No Beta Trixie within 24 hr: No Reason Beta Trixie not given: Pt. not on B-Trixie No Active Prescriptions or Reported Meds Current Medications Sodium Chloride 1,000 ml @ 100 mls/hr Q10H IV Last administered on 02/04/19at 03:54; Admin Dose 100 MLS/HR; Start 02/02/19 at 15:20 IV Flush (NS 3 ml) 3 ml PER PROTOCOL IV ; Start 02/02/19 at 15:30 Ondansetron HCl (Zofran Inj) 4 mg Q6H PRN IV NAUSEA/VOMITING Last administered on 02/02/19at 16:07; Admin Dose 4 MG; Start 02/02/19 at 15:30 Acetaminophen (Tylenol Tab) 650 mg Q6H PRN PO .PAIN 1-3 OR TEMP; Start 02/02/19 at 15:30 Docusate Sodium (Colace) 100 mg Q12H PRN PO .CONSTIPATION; Start 02/02/19 at 15:30 Magnesium Hydroxide (Milk Of Mag) 30 ml DAILY PRN PO .CONSTIPATION; Start 02/02/19 at 15:30 Multivitamins 10 ml/Thiamine HCl 100 mg/Folic Acid 1 mg/Sodium Chloride 1,011.2 ml @ 125 mls/ hr DAILY@09 IVPB Last administered on 02/04/19at 14:20; Admin Dose 125 MLS/HR; Start 02/02/19 at 15:30 Hydralazine HCl (Apresoline) 10 mg Q4H PRN IV SBP >170; Start 02/02/19 at 16:00 Pantoprazole 80 mg/Sodium Chloride 100 ml @ 10 mls/hr Q10H IV Last admi nistered on 02/04/19at 08:34; Admin Dose 10 MLS/HR; Start 02/03/19 at 00:00 Chlordiazepoxide (Librium) 50 mg BID PO Last administered on 02/04/19at 08:34; Admin Dose 50 MG; Start 02/04/19 at 09:00; Stop 02/04/19 at 23:55 Chlordiazepoxide (Librium) 50 mg DAILY PO ; Start 02/05/19 at 09:00 Lorazepam (Ativan) 2 mg Q2 PRN IV agitation, withdrawal; Start 02/04/19 at 13:00 Meds reviewed: Yes Allergies Coded Allergies: No Known Allergy (Unverified , 02/02/19) Allergies Reviewed: Yes Labs/Studies Labs Reviewed: Reviewed by anesthesiologist Result Diagram: 02/04/19 0548 02/04/19 0550 Laboratory Tests 02/04/19 05:48 02/04/19 05:50 Blood Bank Test 02/03/19 16:26 Antibody Screen NEGATIVE Blood Product Summary Counts Blood Type O POSITIVE test: N/A Pre-procedure Exam Last vitals Vital Signs Date Temp Pulse Resp B/P (MAP) Pulse Ox O2 O2 Flow FiO2 Time Delivery Rate 02/04/19 97.4 57 20 154/74 98 Room Air 15:31 (100) Airway: Adequate mouth opening, Adequate thyromental dist Mallampati: Mallampati II Teeth: Normal Lung: Normal Heart: Normal ASA Physical Status ASA physical status: 3 Emergency: None Planned Anesthetic General/MAC: MAC Planned Pain Management Parenteral pain med Pre-operative Attestations Prior to commencing anesthesia and surgery, the patient was re-evaluated, there was verification of: *The patient's identity *The results of appropriate recent lab work and preoperative vital signs *The above evaluation not changing prior to induction *Anesthetic plan, risk benefits, alternative and complications discussed with patient/family; questions answered; patient/family understands, accepts and wishes to proceed. DIONICIO HOLM Feb 04, 2019 15:38
[2019-02-04] MEDS ORDERED: PROPOFOL 40 ML ONE (15:41)
[2019-02-04] MEDS ORDERED: LIDOCAINE 2% (SDV) 5 ML INJ ONE (15:41)
--- NOTE | 2019-02-04 15:43 | HPN ---
Date/Time of Note Date/Time of Note DATE: 02/04/19 TIME: 15:43 Interval H&P Admission Note Pt. seen H&P reviewed: No system changes XIOMY GARCIA Feb 04, 2019 15:43
[2019-02-04] MEDS ORDERED: ONDANSETRON 4 MG INJ IV PRN (16:00)
[2019-02-04] MEDS ORDERED: EPHEDrine SULFATE 50 MG/5 ML SYG IV PRN (16:00)
[2019-02-04] MEDS ORDERED: LABETALOL HCL 20MG INJ IV PRN (16:00)
[2019-02-04] MEDS ORDERED: hydrALAzine 20 MG INJ IV PRN (16:00)
[2019-02-04] MEDS ORDERED: FENTAnyl 50 MCG/ML VIAL IV PRN (16:00)
--- NOTE | 2019-02-04 16:03 | PAC ---
Date/Time of Note Date/Time of Note DATE: 02/04/19 TIME: 16:02 Post-Anesthesia Notes Post-Anesthesia Note Last documented vital signs Vital Signs Date Temp Pulse Resp B/P (MAP) Pulse Ox O2 O2 Flow FiO2 Time Delivery Rate 02/04/19 97.4 57 20 154/74 98 Room Air 1602 (100) Activity: WNL Respiratory function: WNL Cardiovascular function: WNL Mental status: Baseline Pain reasonably controlled: Yes Hydration appropriate: Yes Nausea/Vomiting absent: Yes DIONICIO HOLM Feb 04, 2019 16:03
[2019-02-04] MEDS ORDERED: HALOPERIDOL 5 MG INJ IM ONE (18:00)
[2019-02-04] MEDS: PANTOPRAZOLE 40 MG INJ IV SCH (20:15)
[2019-02-04] MEDS: SUCRALFATE 1 GM TAB PO SCH (20:17)
[2019-02-05 01:43] VITALS: BP 129/70; PULSE 58; RESP 18
[2019-02-05] MEDS: SOD CHLORIDE 0.9% 1,000 ML IV SCH ×3 (03:20→20:45)
[2019-02-05] MEDS: PANTOPRAZOLE 40 MG INJ IV SCH ×2 (05:15→17:28)
[2019-02-05] MEDS: SUCRALFATE 1 GM TAB PO SCH ×4 (05:15→17:28)
[2019-02-05 07:31] VITALS: BP 131/77; PULSE 60; RESP 17
[2019-02-05] MEDS ORDERED: HALOPERIDOL 5 MG INJ IM PRN (09:00)
[2019-02-05] MEDS ORDERED: MAGNESIUM SULFATE 2 GM/50 ML 50 ML IVPB ONE (09:00)
[2019-02-05] MEDS ORDERED: POTASSIUM CHLORIDE 20 MEQ POWDER FOR ORAL SOLN PO ONE (09:00)
[2019-02-05] MEDS ORDERED: CHLORDIAZEPOXIDE 25 MG CAP PO SCH (09:00)
[2019-02-05] MEDS: MULTIVITAMINS 10 ML, THIAMINE 100 MG, FOLIC ACID 1 MG in SOD CHLORIDE 0.9% 1,000 ML IVPB SCH (09:18)
[2019-02-05] MEDS: POTASSIUM CHLORIDE 100 ML IVPB SCH ×3 (10:34→16:41)
[2019-02-05] MEDS: LORAZEPAM 2 MG INJ IV PRN ×2 (12:51→20:45)
[2019-02-05 13:48] VITALS: BP 139/69; PULSE 69; RESP 18
--- NOTE | 2019-02-05 14:13 | PN ---
Date/Time of Note Date/Time of Note DATE: 02/05/19 TIME: 14:03 Assessment/Plan VTE Prophylaxis Risk score (from Ns)>0 risk: 2 [place] [facility] [place] contraindicated: low risk/ambulating Pharmacological prophylaxis: NA/contraindicated Pharm contraindication: bleeding, liver dx Lines/Catheters IV Catheter Type (from [facility] Saline Lock Urinary Cath still in place: No Assessment/Plan Assessment/Plan Assessment: Hematemesis Status post EGD 02/04/2019 -Gastritis -Hiatal hernia -Portal hypertensive gastropathy Alcoholic hepatitis- will order Pt to calculate discriminant function Elevated LFTs with Indirect hyperbilirubinemia -Hepatitis panel negative Pancytopenia Alcoholism Plan: 2 g sodium diet Continue PPI twice daily Carafate 4 times daily DF =15 Review results of MRI when available Patient seen in collaboration with Dr. Reyes Subjective: Patient is doing well. He denies abdominal pain, nausea, vomiting, hematemesis or melena. Tolerated clear liquid diet well. Patient just returned from MRI. Results are pending. Discussed results of EGD. Patient is on treatment with Carafate and Protonix. PHYSICAL EXAMINATION: GENERAL: Alert & oriented x 3, in no acute distress, forgetful SKIN: No lesions HEAD: Normocephalic, atraumatic, no tenderness. EYES: Pupils equal reactive to light, no discharge. EARS/NOSE AND THROAT: Ears normal, nose normal NECK: Supple, no masses CHEST: Inspection within normal limits. CARDIOVASCULAR: Heart: Regular rate and rhythm RESPIRATORY: Lungs clear to auscultation GASTROINTESTINAL AND LIVER: Abdomen: Soft, non tenderness, non-distended, no hernias, no masses, no organomegaly, no ascites, no guarding, no rebound tenderness, normoactive bowel sounds. Rectal: Deferred. EXTREMITIES: No cyanosis, clubbing or edema. Result Diagram: 02/05/19 0638 02/05/19 0638 Results 24hrs Laboratory Tests Test 02/05/19 06:38 White Blood Count 2.8 L Red Blood Count 2.99 L Hemoglobin 8.8 L Hematocrit 27.2 L Mean Corpuscular Volume 91.0 Mean Corpuscular Hemoglobin 29.4 Mean Corpuscular Hemoglobin Concent 32.4 Red Cell Distribution Width 21.5 H Platelet Count 42 L Mean Platelet Volume Immature Granulocytes % 0.400 Neutrophils % Segmented Neutrophils % (Manual) 73 Lymphocytes % Lymphocytes % (Manual) 18 Monocytes % Monocytes % (Manual) 6 Eosinophils % Eosinophils % (Manual) 2 Basophils % Basophils % (Manual) 1 Nucleated Red Blood Cells % 0.0 Immature Granulocytes # 0.010 Neutrophils # Lymphocytes (Manual) 0.5 L Lymphocytes # Monocytes # Monocytes # (Manual) 0.1 L Eosinophils # Basophils # Basophils # (Manual) 0.0 Nucleated Red Blood Cells # Platelet Estimate DECREASED Giant Platelets 2 H Polychromasia 2+ Hypochromasia 1+ Poikilocytosis 1+ Anisocytosis 2+ Macrocytosis 2+ Target Cells 2+ Sodium Level 142 Potassium Level 2.9 *L Chloride Level 110 Carbon Dioxide Level 25 Anion Gap 7 Blood Urea Nitrogen 8 Creatinine 0.57 L Est Glomerular Filtrat Rate mL/min > 60 Glucose Level 86 Calcium Level 8.2 L Magnesium Level 1.8 Total Bilirubin 2.1 H Direct Bilirubin 0.20 Indirect Bilirubin 1.9 H Aspartate Amino Transf (AST/SGOT) 94 H Alanine Aminotransferase (ALT/SGPT) 65 Alkaline Phosphatase 144 H Total Protein 6.2 Albumin 2.8 L Globulin 3.40 H Albumin/Globulin Ratio 0.82 CC: CHRISTIAN REYES MD ; Exam/Review of Systems Exam Vitals Vital Signs Date Temp Pulse Resp B/P (MAP) Pulse Ox O2 O2 Flow FiO2 Time Delivery Rate 02/05/19 98.1 69 18 139/69 96 13:48 (92) 02/04/19 Room Air 16:41 02/04/19 10.0 16:26 Intake and Output 02/04/19 02/04/19 02/05/19 1515:00 23:00 07:00 IntakeIntake Total 400 ml 210 ml 600 ml OutputOutput Total 850 ml BalanceBalance -450 ml 210 ml 600 ml Results Results 24hrs Laboratory Tests Test 02/05/19 06:38 White Blood Count 2.8 L Red Blood Count 2.99 L Hemoglobin 8.8 L Hematocrit 27.2 L Mean Corpuscular Volume 91.0 Mean Corpuscular Hemoglobin 29.4 Mean Corpuscular Hemoglobin Concent 32.4 Red Cell Distribution Width 21.5 H Platelet Count 42 L Mean Platelet Volume Immature Granulocytes % 0.400 Neutrophils % Segmented Neutrophils % (Manual) 73 Lymphocytes % Lymphocytes % (Manual) 18 Monocytes % Monocytes % (Manual) 6 Eosinophils % Eosinophils % (Manual) 2 Basophils % Basophils % (Manual) 1 Nucleated Red Blood Cells % 0.0 Immature Granulocytes # 0.010 Neutrophils # Lymphocytes (Manual) 0.5 L Lymphocytes # Monocytes # Monocytes # (Manual) 0.1 L Eosinophils # Basophils # Basophils # (Manual) 0.0 Nucleated Red Blood Cells # Platelet Estimate DECREASED Giant Platelets 2 H Polychromasia 2+ Hypochromasia 1+ Poikilocytosis 1+ Anisocytosis 2+ Macrocytosis 2+ Target Cells 2+ Sodium Level 142 Potassium Level 2.9 *L Chloride Level 110 Carbon Dioxide Level 25 Anion Gap 7 Blood Urea Nitrogen 8 Creatinine 0.57 L Est Glomerular Filtrat Rate mL/min > 60 Glucose Level 86 Calcium Level 8.2 L Magnesium Level 1.8 Total Bilirubin 2.1 H Direct Bilirubin 0.20 Indirect Bilirubin 1.9 H Aspartate Amino Transf (AST/SGOT) 94 H Alanine Aminotransferase (ALT/SGPT) 65 Alkaline Phosphatase 144 H Total Protein 6.2 Albumin 2.8 L Globulin 3.40 H Albumin/Globulin Ratio 0.82 Medications Medication Current Medications Sodium Chloride 1,000 ml @ 100 mls/hr Q10H IV Last administered on 02/04/19at 0 3:54; Admin Dose 100 MLS/HR; Start 02/02/19 at 15:20 IV Flush (NS 3 ml) 3 ml PER PROTOCOL IV ; Start 02/02/19 at 15:30 Ondansetron HCl (Zofran Inj) 4 mg Q6H PRN IV NAUSEA/VOMITING Last administered on 02/02/19at 16:07; Admin Dose 4 MG; Start 02/02/19 at 15:30 Acetaminophen (Tylenol Tab) 650 mg Q6H PRN PO .PAIN 1-3 OR TEMP; Start 02/02/19 at 15:30 Docusate Sodium (Colace) 100 mg Q12H PRN PO .CONSTIPATION; Start 02/02/19 at 15:30 Magnesium Hydroxide (Milk Of Mag) 30 ml DAILY PRN PO .CONSTIPATION; Start 02/02/19 at 15:30 Multivitamins 10 ml/Thiamine HCl 100 mg/Folic Acid 1 mg/Sodium Chloride 1,011.2 ml @ 125 mls/ hr DAILY@09 IVPB Last administered on 02/05/19at 09:18; Admin Dose 125 MLS/HR; Start 02/02/19 at 15:30 Hydralazine HCl (Apresoline) 10 mg Q4H PRN IV SBP >170; Start 02/02/19 at 16:00 Chlordiazepoxide (Librium) 50 mg DAILY PO Last administered on 02/05/19at 09:17; Admin Dose 50 MG; Start 02/05/19 at 09:00 Lorazepam (Ativan) 2 mg Q2 PRN IV agitation, withdrawal Last administered on 02/05/19at 12:51; Admin Dose 2 MG; Start 02/04/19 at 13:00 Pantoprazole (Protonix Iv) 40 mg BID@06,18 IV Last administered on 02/05/19 05:15; Admin Dose 40 MG; Start 02/04/19 at 18:00 Sucralfate (Carafate) 1 gm Q6 PO Last administered on 02/05/19at 05:15; Admin Dose 1 GM; Start 02/04/19 at 18:00 Potassium Chloride 100 ml @ 50 mls/hr Q2H IVPB Last administered on 02/05/19at 10:34; Admin Dose 50 MLS/HR; Start 02/05/19 at 10:00; Stop 02/05/19 at 15:59 Haloperidol (Haldol) 5 mg Q6H PRN IM agitation; Start 02/05/19 at 09:00 CATHY JERONIMO NP Feb 05, 2019 14:13
--- NOTE | 2019-02-05 15:48 | PN ---
Date/Time of Note Date/Time of Note DATE: 02/05/19 TIME: 15:42 Assessment/Plan VTE Prophylaxis Risk score (from Ns)>0 risk: 2 SCD applied (from Ns): Yes Pharmacological prophylaxis: NA/contraindicated Pharm contraindication: bleeding, liver dx, thrombocytopenia Lines/Catheters Urinary Cath still in place: No Assessment/Plan Assessment/Plan 1. Acute alcohol intoxication- improving - Mentation improved this am and no agitation appreciated. - Continue Librium taper - Monitor for DTs - Ativan PRN - ETOH levels noted 2. Alcoholic hepatitis - LFTs continues to trend downward - hepatitis panel negative - RUQ US shows severe hepatic steatosis - MRI results pending 3. Anemia, ?blood loss - hgb remains stable with no need for blood transfusion - no witnessed hematemesis since admission - GI on board and appreciate consultation. EGD performed with findings of g astritis and gastropathy consistent with cirrhosis - iron levels noted 4. Severe thrombocytopenia - improving - s/p platelet transfusion 5. hypokalemia - replacing 6. alcohol abuse - 3-4 beers daily - cessation counseling offered 7. Disposition - MRI today and will await results. continue Librium taper - SW consulted given patient homeless and requested resources Result Diagram: 02/05/19 0638 02/05/19 0638 Results 24hrs Laboratory Tests Test 02/05/19 06:38 02/05/19 14:21 White Blood Count 2.8 L Red Blood Count 2.99 L Hemoglobin 8.8 L Hematocrit 27.2 L Mean Corpuscular Volume 91.0 Mean Corpuscular Hemoglobin 29.4 Mean Corpuscular Hemoglobin Concent 32.4 Red Cell Distribution Width 21.5 H Platelet Count 42 L Mean Platelet Volume Immature Granulocytes % 0.400 Neutrophils % Segmented Neutrophils % (Manual) 73 Lymphocytes % Lymphocytes % (Manual) 18 Monocytes % Monocytes % (Manual) 6 Eosinophils % Eosinophils % (Manual) 2 Basophils % Basophils % (Manual) 1 Nucleated Red Blood Cells % 0.0 Immature Granulocytes # 0.010 Neutrophils # Lymphocytes (Manual) 0.5 L Lymphocytes # Monocytes # Monocytes # (Manual) 0.1 L Eosinophils # Basophils # Basophils # (Manual) 0.0 Nucleated Red Blood Cells # Platelet Estimate DECREASED Giant Platelets 2 H Polychromasia 2+ Hypochromasia 1+ Poikilocytosis 1+ Anisocytosis 2+ Macrocytosis 2+ Target Cells 2+ Sodium Level 142 Potassium Level 2.9 *L Chloride Level 110 Carbon Dioxide Level 25 Anion Gap 7 Blood Urea Nitrogen 8 Creatinine 0.57 L Est Glomerular Filtrat Rate mL/min > 60 Glucose Level 86 Calcium Level 8.2 L Magnesium Level 1.8 Total Bilirubin 2.1 H Direct Bilirubin 0.20 Indirect Bilirubin 1.9 H Aspartate Amino Transf (AST/SGOT) 94 H Alanine Aminotransferase (ALT/SGPT) 65 Alkaline Phosphatase 144 H Total Protein 6.2 Albumin 2.8 L Globulin 3.40 H Albumin/Globulin Ratio 0.82 Phosphorus Level 3.5 Ammonia 45 H Subjective 24 Hr Interval Summary Free Text/Dictation Patient more alert this am and able to verbalize reason for plan of care and asking appropriate questions. Exam/Review of Systems Exam Vitals Vital Signs Date Temp Pulse Resp B/P (MAP) Pulse Ox O2 O2 Flow FiO2 Time Delivery Rate 02/05/19 98.1 69 18 139/69 96 13:48 (92) 02/04/19 Room Air 16:41 02/04/19 10.0 16:26 Intake and Output 02/04/19 02/04/19 02/05/19 1515:00 23:00 07:00 IntakeIntake Total 400 ml 210 ml 600 ml OutputOutput Total 850 ml BalanceBalance -450 ml 210 ml 600 ml Exam General: Patient is laying in bed, answering questions appropriately. more alert this am Eyes: EOMI, pupils reactive to light. Respiratory: Clear to auscultation bilaterally. no wheezing or rhonchi Cardiovascular: S1, S2, regular rate and rhythm, no obvious murmurs Gastrointestinal: soft, non-tender to palpation, nondistended, bowel sounds heard. Neurological: Moves all extremities spontaneously Skin: No new skin lesions. Results Results 24hrs Laboratory Tests Test 02/05/19 06:38 02/05/19 14:21 White Blood Count 2.8 L Red Blood Count 2.99 L Hemoglobin 8.8 L Hematocrit 27.2 L Mean Corpuscular Volume 91.0 Mean Corpuscular Hemoglobin 29.4 Mean Corpuscular Hemoglobin Concent 32.4 Red Cell Distribution Width 21.5 H Platelet Count 42 L Mean Platelet Volume Immature Granulocytes % 0.400 Neutrophils % Segmented Neutrophils % (Manual) 73 Lymphocytes % Lymphocytes % (Manual) 18 Monocytes % Monocytes % (Manual) 6 Eosinophils % Eosinophils % (Manual) 2 Basophils % Basophils % (Manual) 1 Nucleated Red Blood Cells % 0.0 Immature Granulocytes # 0.010 Neutrophils # Lymphocytes (Manual) 0.5 L Lymphocytes # Monocytes # Monocytes # (Manual) 0.1 L Eosinophils # Basophils # Basophils # (Manual) 0.0 Nucleated Red Blood Cells # Platelet Estimate DECREASED Giant Platelets 2 H Polychromasia 2+ Hypochromasia 1+ Poikilocytosis 1+ Anisocytosis 2+ Macrocytosis 2+ Target Cells 2+ Sodium Level 142 Potassium Level 2.9 *L Chloride Level 110 Carbon Dioxide Level 25 Anion Gap 7 Blood Urea Nitrogen 8 Creatinine 0.57 L Est Glomerular Filtrat Rate mL/min > 60 Glucose Level 86 Calcium Level 8.2 L Magnesium Level 1.8 Total Bilirubin 2.1 H Direct Bilirubin 0.20 Indirect Bilirubin 1.9 H Aspartate Amino Transf (AST/SGOT) 94 H Alanine Aminotransferase (ALT/SGPT) 65 Alkaline Phosphatase 144 H Total Protein 6.2 Albumin 2.8 L Globulin 3.40 H Albumin/Globulin Ratio 0.82 Phosphorus Level 3.5 Ammonia 45 H Medications Medication Current Medications Sodium Chloride 1,000 ml @ 100 mls/hr Q10H IV Last administered on 02/04/19at 03:54; Admin Dose 100 MLS/HR; Start 02/02/19 at 15:20 IV Flush (NS 3 ml) 3 ml PER PROTOCOL IV ; Start 02/02/19 at 15:30 Ondansetron HCl (Zofran Inj) 4 mg Q6H PRN IV NAUSEA/VOMITING Last administered on 02/02/19at 16:07; Admin Dose 4 MG; Start 02/02/19 at 15:30 Acetaminophen (Tylenol Tab) 650 mg Q6H PRN PO .PAIN 1-3 OR TEMP; Start 02/02/19 at 15:30 Docusate Sodium (Colace) 100 mg Q12H PRN PO .CONSTIPATION; Start 02/02/19 at 15:30 Magnesium Hydroxide (Milk Of Mag) 30 ml DAILY PRN PO .CONSTIPATION; Start 02/02/19 at 15:30 Multivitamins 10 ml/Thiamine HCl 100 mg/Folic Acid 1 mg/Sodium Chloride 1,011.2 ml @ 125 mls/ hr DAILY@09 IVPB Last administered on 02/05/19at 09:18; Admin Dose 125 MLS/HR; Start 02/02/19 at 15:30 Hydralazine HCl (Apresoline) 10 mg Q4H PRN IV SBP >170; Start 02/02/19 at 16:00 Chlordiazepoxide (Librium) 50 mg DAILY PO Last administered on 02/05/19at 09:17; Admin Dose 50 MG; Start 02/05/19 at 09:00 Lorazepam (Ativan) 2 mg Q2 PRN IV agitation, withdrawal Last administered on 02/05/19at 12:51; Admin Dose 2 MG; Start 02/04/19 at 13:00 Pantoprazole (Protonix Iv) 40 mg BID@06,18 IV Last administered on 02/05/19at 05:15; Admin Dose 40 MG; Start 02/04/19 at 18:00 Sucralfate (Carafate) 1 gm Q6 PO Last administered on 02/05/19at 05:15; Admin Dose 1 GM; Start 02/04/19 at 18:00 Potassium Chloride 100 ml @ 50 mls/hr Q2H IVPB Last administered on 02/05/19at 14:04; Admin Dose 50 MLS/HR; Start 02/05/19 at 10:00; Stop 02/05/19 at 15:59 Haloperidol (Haldol) 5 mg Q6H PRN IM agitation; Start 02/05/19 at 09:00 LYNNETTE RILEY MD Feb 05, 2019 15:48
[2019-02-05 19:30] VITALS: BP 137/76; PULSE 69; RESP 18
[2019-02-06] MEDS: SUCRALFATE 1 GM TAB PO SCH ×5 (00:18→23:02)
[2019-02-06 01:30] VITALS: BP 136/79; PULSE 79; RESP 18
[2019-02-06] MEDS: SOD CHLORIDE 0.9% 1,000 ML IV SCH ×3 (05:46→19:20)
[2019-02-06] MEDS: PANTOPRAZOLE 40 MG INJ IV SCH ×2 (05:47→17:46)
[2019-02-06 07:59] VITALS: BP 139/79; PULSE 56; RESP 18
[2019-02-06] MEDS: CHLORDIAZEPOXIDE 25 MG CAP PO SCH (08:12)
[2019-02-06] MEDS: MULTIVITAMINS 10 ML, THIAMINE 100 MG, FOLIC ACID 1 MG in SOD CHLORIDE 0.9% 1,000 ML IVPB SCH (08:13)
[2019-02-06] MEDS ORDERED: POTASSIUM CHLORIDE (SR) 20 MEQ TAB PO STA (08:51)
--- NOTE | 2019-02-06 08:53 | PN ---
Date/Time of Note Date/Time of Note DATE: 02/06/19 TIME: 08:53 Assessment/Plan VTE Prophylaxis Risk score (from Ns)>0 risk: 2 SCD applied (from [facility] [place] No SCD contraindicated: low risk/ambulating Pharmacological prophylaxis: NA/contraindicated Pharm contraindication: thrombocytopenia Lines/Catheters Urinary Cath still in place: No Assessment/Plan Assessment/Plan 1. Acute hepatic encephalopathy - Patient in and out of confusion - GI on board and started on Rifaximin and lactulose. Will need to titrate the lactulose for 3-4 BMs daily. monitor for improvement in mentation - ammonia level noted 2. Acute alcohol intoxication - Continue Librium taper - Monitor for DTs - Ativan PRN - ETOH levels noted 3. Alcoholic hepatitis - LFTs trending downward - hepatitis panel negative - RUQ US shows severe hepatic steatosis - MRI results show hepatic steatosis with underlying cirrhosis which was discussed with patient. He states he will stop drink alcohol and drink my juice 4. Anemia, ?blood loss - improving - no witnessed hematemesis since admission - GI on board and appreciate consultation. EGD performed with findings of gastritis and gastropathy consistent with cirrhosis - iron levels noted 5. Severe thrombocytopenia - improving - s/p platelet transfusion 6. hypokalemia - replacing 7. alcohol abuse - 3-4 beers daily - cessation counseling offered 8. Disposition - Continue Librium taper. Started on Rifaximin and Lactulose for hepatic encephalopathy - SW consulted given patient homeless and requested resources - Once mentation back to baseline, can d/c Result Diagram: 02/06/19 0628 02/06/1928 Results 24hrs Laboratory Tests Test 02/05/19 14:21 02/06/19 06:11 02/06/19 06:28 Phosphorus Level 3.5 Ammonia 45 H Lab Scanned Report BLOOD TRANSFUSION White Blood Count 2.6 L Red Blood Count 3.07 L Hemoglobin 9.0 L Hematocrit 27.9 L Mean Corpuscular Volume 90.9 Mean Corpuscular Hemoglobin 29.3 Mean Corpuscular 32.3 Hemoglobin Concent Red Cell Distribution Width 22.1 H Platelet Count 42 L Mean Platelet Volume Immature Granulocytes % 0.400 Neutrophils % Lymphocytes % Monocytes % Eosinophils % Basophils % Nucleated Red Blood Cells % 0.0 Immature Granulocytes # 0.010 Neutrophils # Lymphocytes # Monocytes # Eosinophils # Basophils # Nucleated Red Blood Cells # Sodium Level 139 Potassium Level 3.2 L Chloride Level 108 Carbon Dioxide Level 24 Anion Gap 7 Blood Urea Nitrogen 8 Creatinine 0.53 L Est Glomerular Filtrat > 60 Rate mL/min Glucose Level 115 Calcium Level 8.2 L Magnesium Level 1.9 Total Bilirubin 1.5 H Direct Bilirubin 0.00 # Indirect Bilirubin 1.5 H Aspartate Amino Transf (AST/SGOT) 97 H Alanine 65 Aminotransferase (ALT/SGPT) Alkaline Phosphatase 176 H Total Protein 6.3 Albumin 2.9 L Globulin 3.40 H Albumin/Globulin Ratio 0.85 Subjective 24 Hr Interval Summary Free Text/Dictation Patient goes in and out of confusion but remains pleasant. Family at bedside. Discussed cirrhosis and need for alcohol cessation. Exam/Review of Systems Exam Vitals Vital Signs Date Temp Pulse Resp B/P (MAP) Pulse Ox O2 O2 Flow FiO2 Time Delivery Rate 02/06/19 97.7 56 18 139/79 100 Room Air 07:59 (99) 02/04/19 10.0 16:26 Intake and Output 02/05/19 02/05/19 02/06/19 1515:00 23:00 07:00 IntakeIntake Total 1710 ml 2071.2 ml 1240 ml OutputOutput Total 450 ml 200 ml BalanceBalance 1260 ml 2071.2 ml 1040 ml Exam General: Patient is laying in bed, slightly confused. no acute distress Eyes: EOMI, pupils reactive to light. Respiratory: Clear to auscultation bilaterally. no wheezing or rhonchi Cardiovascular: S1, S2, regular rate and rhythm, no obvious murmurs Gastrointestinal: soft, non-tender to palpation, nondistended, bowel sounds heard. Neurological: Moves all extremities spontaneously Skin: No new skin lesions. Results Results 24hrs Laboratory Tests Test 02/05/19 14:21 02/06/19 06:11 02/06/19 06:28 Phosphorus Level 3.5 Ammonia 45 H Lab Scanned Report BLOOD TRANSFUSION White Blood Count 2.6 L Red Blood Count 3.07 L Hemoglobin 9.0 L Hematocrit 27.9 L Mean Corpuscular Volume 90.9 Mean Corpuscular Hemoglobin 29.3 Mean Corpuscular 32.3 Hemoglobin Concent Red Cell Distribution Width 22.1 H Platelet Count 42 L Mean Platelet Volume Immature Granulocytes % 0.400 Neutrophils % Lymphocytes % Monocytes % Eosinophils % Basophils % Nucleated Red Blood Cells % 0.0 Immature Granulocytes # 0.010 Neutrophils # Lymphocytes # Monocytes # Eosinophils # Basophils # Nucleated Red Blood Cells # Sodium Level 139 Potassium Level 3.2 L Chloride Level 108 Carbon Dioxide Level 24 Anion Gap 7 Blood Urea Nitrogen 8 Creatinine 0.53 L Est Glomerular Filtrat > 60 Rate mL/min Glucose Level 115 Calcium Level 8.2 L Magnesium Level 1.9 Total Bilirubin 1.5 H Direct Bilirubin 0.00 # Indirect Bilirubin 1.5 H Aspartate Amino Transf (AST/SGOT) 97 H Alanine 65 Aminotransferase (ALT/SGPT) Alkaline Phosphatase 176 H Total Protein 6.3 Albumin 2.9 L Globulin 3.40 H Albumin/Globulin Ratio 0.85 Medications Medication Current Medications Sodium Chloride 1,000 ml @ 100 mls/hr Q10H IV Last administered on 02/06/19at 05:46; Admin Dose 100 MLS/HR; Start 02/02/19 at 15:20 IV Flush (NS 3 ml) 3 ml PER PROTOCOL IV ; Start 02/02/19 at 15:30 Ondansetron HCl (Zofran Inj) 4 mg Q6H PRN IV NAUSEA/VOMITING Last administered on 02/02/19at 16:07; Admin Dose 4 MG; Start 02/02/19 at 15:30 Acetaminophen (Tylenol Tab) 650 mg Q6H PRN PO .PAIN 1-3 OR TEMP; Start 02/02/19 at 15:30 Docusate Sodium (Colace) 100 mg Q12H PRN PO .CONSTIPATION; Start 02/02/19 at 15:30 Magnesium Hydroxide (Milk Of Mag) 30 ml DAILY PRN PO .CONSTIPATION; Start 02/02/19 at 15:30 Multivitamins 10 ml/Thiamine HCl 100 mg/Folic Acid 1 mg/Sodium Chloride 1,011.2 ml @ 125 mls/ hr DAILY@09 IVPB Last administered on 02/06/19at 08:13; Admin Dose 125 MLS/HR; Start 02/02/19 at 15:30 Hydralazine HCl (Apresoline) 10 mg Q4H PRN IV SBP >170; Start 02/02/19 at 16:00 Lorazepam (Ativan) 2 mg Q2 PRN IV agitation, withdrawal Last administered on 02/05/19at 20:45; Admin Dose 2 MG; Start 02/04/19 at 13:00 Pantoprazole (Protonix Iv) 40 mg BID@06,18 IV Last administered on 02/06/19at 05:47; Admin Dose 40 MG; Start 02/04/19 at 18:00 Sucralfate (Carafate) 1 gm Q6 PO Last administered on 02/06/19at 05:47; Admin Dose 1 GM; Start 02/04/19 at 18:00 Haloperidol (Haldol) 5 mg Q6H PRN IM agitation; Start 02/05/19 at 09:00 Chlordiazepoxide (Librium) 25 mg DAILY PO Last administered on 02/06/19at 08:12; Admin Dose 25 MG; Start 02/06/19 at 09:00 Potassium Chloride (Klor-Con 20) 40 meq ONCE STAT PO ; Start 02/06/19 at 08:51; Stop 02/06/19 at 08:52; Status UNLYNNETTE KIRKLAND MD Feb 06, 2019 08:53
--- NOTE | 2019-02-06 11:28 | PN ---
Date/Time of Note Date/Time of Note DATE: 02/06/19 TIME: 11:19 Assessment/Plan VTE Prophylaxis Risk score (from Ns)>0 risk: 2 SCD applied (from Ns): Yes Pharmacological prophylaxis: NA/contraindicated Pharm contraindication: liver dx Lines/Catheters IV Catheter Type (from [facility]): Peripheral IV Urinary Cath still in place: No Assessment/Plan Assessment/Plan Assessment: Hepatic encephalopathy Hematemesis Status post EGD 02/04/2019 -Gastritis -Hiatal hernia -Portal hypertensive gastropathy Alcoholic hepatitis- will order Pt to calculate discriminant function Elevated LFTs with Indirect hyperbilirubinemia -Hepatitis panel negative Pancytopenia Alcoholism - withdrawal Plan: Start Lactulose and Rifaximin 2 g sodium diet Continue PPI twice daily Carafate 4 times daily DF =15 MRCP is negative for choledocholithiasis Patient seen in collaboration with Dr. Reyes Subjective: Patient remains lethargic and confused. He denies abdominal pain, nausea, vomi ting, hematemesis or melena. Tolerated regular diet well. Reviewed results of MRI - negative for choledocholithiasis . Patient is on treatment with Carafate and Protonix. Will add Lactulose and Rifaximin to treat HE. PHYSICAL EXAMINATION: GENERAL: Alert & oriented x 3, in no acute distress, forgetful SKIN: No lesions HEAD: Normocephalic, atraumatic, no tenderness. EYES: Pupils equal reactive to light, no discharge. EARS/NOSE AND THROAT: Ears normal, nose normal NECK: Supple, no masses CHEST: Inspection within normal limits. CARDIOVASCULAR: Heart: Regular rate and rhythm RESPIRATORY: Lungs clear to auscultation GASTROINTESTINAL AND LIVER: Abdomen: Soft, non tenderness, non-distended, no hernias, no masses, no organomegaly, no ascites, no guarding, no rebound tenderness, normoactive bowel sounds. Rectal: Deferred. EXTREMITIES: No cyanosis, clubbing or edema. Result Diagram: 02/06/1962702/06/19627 Results 24hrs Laboratory Tests Test 02/05/19 14:21 02/06/19 06:11 02/06/19 06:28 Phosphorus Level 3.5 Ammonia 45 H Lab Scanned Report BLOOD TRANSFUSION White Blood Count 2.6 L Red Blood Count 3.07 L Hemoglobin 9.0 L Hematocrit 27.9 L Mean Corpuscular Volume 90.9 Mean Corpuscular Hemoglobin 29.3 Mean Corpuscular 32.3 Hemoglobin Concent Red Cell Distribution Width 22.1 H Platelet Count 42 L Mean Platelet Volume Immature Granulocytes % 0.400 Neutrophils % Segmented Neutrophils % (Manual) 67 Lymphocytes % Lymphocytes % (Manual) 22 Monocytes % Monocytes % (Manual) 9 Eosinophils % Eosinophils % (Manual) 1 Basophils % Basophils % (Manual) 1 Nucleated Red Blood Cells % 0.0 Immature Granulocytes # 0.010 Neutrophils # Lymphocytes (Manual) 0.5 L Lymphocytes # Monocytes # Monocytes # (Manual) 0.2 L Eosinophils # Basophils # Basophils # (Manual) 0.0 Nucleated Red Blood Cells # Platelet Estimate DECREASED Polychromasia 2+ Hypochromasia 1+ Anisocytosis 2+ Target Cells 1+ Sodium Level 139 Potassium Level 3.2 L Chloride Level 108 Carbon Dioxide Level 24 Anion Gap 7 Blood Urea Nitrogen 8 Creatinine 0.53 L Est Glomerular Filtrat > 60 Rate mL/min Glucose Level 115 Calcium Level 8.2 L Magnesium Level 1.9 Total Bilirubin 1.5 H Direct Bilirubin 0.00 # Indirect Bilirubin 1.5 H Aspartate Amino Transf (AST/SGOT) 97 H Alanine 65 Aminotransferase (ALT/SGPT) Alkaline Phosphatase 176 H Total Protein 6.3 Albumin 2.9 L Globulin 3.40 H Albumin/Globulin Ratio 0.85 CC: CHRISTIAN REYES MD ; Exam/Review of Systems Exam Vitals Vital Signs Date Temp Pulse Resp B/P (MAP) Pulse Ox O2 O2 Flow FiO2 Time Delivery Rate 02/06/19 97.7 56 18 139/79 100 Room Air 07:59 (99) 02/04/19 10.0 16:26 Intake and Output 02/05/19 02/05/19 02/06/19 1515:00 23:00 07:00 IntakeIntake Total 1710 ml 2071.2 ml 1240 ml OutputOutput Total 450 ml 200 ml BalanceBalance 1260 ml 2071.2 ml 1040 ml Results Results 24hrs Laboratory Tests Test 02/05/19 14:21 02/06/19 06:11 02/06/19 06:28 Phosphorus Level 3.5 Ammonia 45 H Lab Scanned Report BLOOD TRANSFUSION White Blood Count 2.6 L Red Blood Count 3.07 L Hemoglobin 9.0 L Hematocrit 27.9 L Mean Corpuscular Volume 90.9 Mean Corpuscular Hemoglobin 29.3 Mean Corpuscular 32.3 Hemoglobin Concent Red Cell Distribution Width 22.1 H Platelet Count 42 L Mean Platelet Volume Immature Granulocytes % 0.400 Neutrophils % Segmented Neutrophils % (Manual) 67 Lymphocytes % Lymphocytes % (Manual) 22 Monocytes % Monocytes % (Manual) 9 Eosinophils % Eosinophils % (Manual) 1 Basophils % Basophils % (Manual) 1 Nucleated Red Blood Cells % 0.0 Immature Granulocytes # 0.010 Neutrophils # Lymphocytes (Manual) 0.5 L Lymphocytes # Monocytes # Monocytes # (Manual) 0.2 L Eosinophils # Basophils # Basophils # (Manual) 0.0 Nucleated Red Blood Cells # Platelet Estimate DECREASED Polychromasia 2+ Hypochromasia 1+ Anisocytosis 2+ Target Cells 1+ Sodium Level 139 Potassium Level 3.2 L Chloride Level 108 Carbon Dioxide Level 24 Anion Gap 7 Blood Urea Nitrogen 8 Creatinine 0.53 L Est Glomerular Filtrat > 60 Rate mL/min Glucose Level 115 Calcium Level 8.2 L Magnesium Level 1.9 Total Bilirubin 1.5 H Direct Bilirubin 0.00 # Indirect Bilirubin 1.5 H Aspartate Amino Transf (AST/SGOT) 97 H Alanine 65 Aminotransferase (ALT/SGPT) Alkaline Phosphatase 176 H Total Protein 6.3 Albumin 2.9 L Globulin 3.40 H Albumin/Globulin Ratio 0.85 Medications Medication Current Medications Sodium Chloride 1,000 ml @ 100 mls/hr Q10H IV Last administered on 02/06/19at 05:46; Admin Dose 100 MLS/HR; Start 02/02/19 at 15:20 IV Flush (NS 3 ml) 3 ml PER PROTOCOL IV ; Start 02/02/19 at 15:30 Ondansetron HCl (Zofran Inj) 4 mg Q6H PRN IV NAUSEA/VOMITING Last administered on 02/02/19at 16:07; Admin Dose 4 MG; Start 02/02/19 at 15:30 Acetaminophen (Tylenol Tab) 650 mg Q6H PRN PO .PAIN 1-3 OR TEMP; Start 02/02/19 at 15:30 Docusate Sodium (Colace) 100 mg Q12H PRN PO .CONSTIPATION; Start 02/02/19 at 15:30 Magnesium Hydroxide (Milk Of Mag) 30 ml DAILY PRN PO .CONSTIPATION; Start 02/02/19 at 15:30 Multivitamins 10 ml/Thiamine HCl 100 mg/Folic Acid 1 mg/Sodium Chloride 1,011.2 ml @ 125 mls/ hr DAILY@09 IVPB Last administered on 02/06/19at 08:13; Admin Dose 125 MLS/HR; Start 02/02/19 at 15:30 Hydralazine HCl (Apresoline) 10 mg Q4H PRN IV SBP >170; Start 02/02/19 at 16:00 Lorazepam (Ativan) 2 mg Q2 PRN IV agitation, withdrawal Last administered on 02/05/19at 20:45; Admin Dose 2 MG; Start 02/04/19 at 13:00 Pantoprazole (Protonix Iv) 40 mg BID@06,18 IV Last administered on 02/06/19at 05:47; Admin Dose 40 MG; Start 02/04/19 at 18:00 Sucralfate (Carafate) 1 gm Q6 PO Last administered on 02/06/19at 05:47; Admin Dose 1 GM; Start 02/04/19 at 18:00 Haloperidol (Haldol) 5 mg Q6H PRN IM agitation; Start 02/05/19 at 09:00 Chlordiazepoxide (Librium) 25 mg DAILY PO Last administered on 02/06/19at 08:12; Admin Dose 25 MG; Start 02/06/19 at 09:00 Potassium Chloride (Klor-Con 20) 40 meq ONCE PO ; Start 02/06/19 at 13:00; Stop 02/06/19 at 18:00 CATHY JERONIMO NP Feb 06, 2019 11:28
[2019-02-06] MEDS: RIFAXIMIN 550 MG TAB PO SCH ×2 (12:59→21:04)
[2019-02-06] MEDS ORDERED: POTASSIUM CHLORIDE (SR) 20 MEQ TAB PO SCH (13:00)
[2019-02-06] MEDS: LACTULOSE 30ML CUP PO SCH ×2 (13:58→21:04)
[2019-02-06 14:00] VITALS: BP 130/84; PULSE 89; RESP 18
[2019-02-06 19:50] VITALS: BP 132/77; PULSE 68; RESP 18
[2019-02-07] MEDS: SOD CHLORIDE 0.9% 1,000 ML IV SCH ×3 (01:09→15:20)
[2019-02-07 02:30] VITALS: BP 143/76; PULSE 63; RESP 17
[2019-02-07] MEDS: SUCRALFATE 1 GM TAB PO SCH ×4 (05:59→23:33)
[2019-02-07] MEDS: PANTOPRAZOLE 40 MG INJ IV SCH ×2 (05:59→17:16)
[2019-02-07] MEDS: LACTULOSE 30ML CUP PO SCH ×3 (05:59→23:33)
[2019-02-07 07:39] VITALS: BP 145/76; PULSE 67; RESP 16
[2019-02-07] MEDS: MULTIVITAMINS 10 ML, THIAMINE 100 MG, FOLIC ACID 1 MG in SOD CHLORIDE 0.9% 1,000 ML IVPB SCH (08:10)
[2019-02-07] MEDS: CHLORDIAZEPOXIDE 25 MG CAP PO SCH (08:10)
[2019-02-07] MEDS: RIFAXIMIN 550 MG TAB PO SCH ×2 (08:10→20:08)
[2019-02-07 13:12] VITALS: BP 135/69; PULSE 76; RESP 18
--- NOTE | 2019-02-07 15:37 | PN ---
Date/Time of Note Date/Time of Note DATE: 02/07/19 TIME: 15:27 Assessment/Plan VTE Prophylaxis Risk score (from Ns)>0 risk: 2 SCD applied (from Ns): No SCD contraindicated: other (scds) Pharmacological prophylaxis: other (scds) Lines/Catheters [facility] (from [facility]): Peripheral IV Urinary Cath still in place: No Assessment/Plan Hospital Course Assessment: Hepatic encephalopathy Hematemesis Status post EGD 02/04/2019 -Gastritis -Hiatal hernia -Portal hypertensive gastropathy Alcoholic hepatitis- DF =15 Hepatic steatosis with suspected underlying cirrhosis. Elevated LFTs with Indirect hyperbilirubinemia - trending down -Hepatitis panel negative Pancytopenia- Improved Alcoholism - withdrawal Homelessness Plan: Lactulose (titrate to 3-4 BMs per day) and Rifaximin 2 g sodium diet Continue PPI twice daily Carafate 4 times daily MRCP is negative for choledocholithiasis Will check AFP- additionally labs- liver dz process likely 2/2 ETOH abuse- Pt will need to f/u as an out-pt with GI after discharge- ongoing of hepatic steatosis with suspected underlying cirrhosis. Patient seen in collaboration with Dr. Reyes Subjective: Patient remains lethargic and confused. He denies abdominal pain, nausea, vomiting, hematemesis or melena. No over night events, tolerating diet well pancytopenia improving. Pt denies n/v or abd pain. PHYSICAL EXAMINATION: GENERAL: Alert & oriented x 3, in no acute distress, forgetful SKIN: No lesions HEAD: Normocephalic, atraumatic, no tenderness. EYES: Pupils equal reactive to light, no discharge. EARS/NOSE AND THROAT: Ears normal, nose normal NECK: Supple, no masses CHEST: Inspection within normal limits. CARDIOVASCULAR: Heart: Regular rate and rhythm RESPIRATORY: Lungs clear to auscultation GASTROINTESTINAL AND LIVER: Abdomen: Soft, non tenderness, non-distended, no hernias, no masses, no organomegaly, no ascites, no guarding, no rebound tenderness, normoactive bowel sounds. Rectal: Deferred. EXTREMITIES: No cyanosis, clubbing or edema. Result Diagram: 02/07/19 0504 02/07/19 0504 Results 24hrs Laboratory Tests Test 02/07/19 05:04 White Blood Count 3.5 #L Red Blood Count 3.20 L Hemoglobin 9.4 L Hematocrit 29.0 L Mean Corpuscular Volume 90.6 Mean Corpuscular Hemoglobin 29.4 Mean Corpuscular Hemoglobin Concent 32.4 Red Cell Distribution Width 21.4 H Platelet Count 54 #L Mean Platelet Volume Immature Granulocytes % 0.600 H Neutrophils % 49.9 Lymphocytes % 25.7 Monocytes % 20.9 H Eosinophils % 2.0 Basophils % 0.9 Nucleated Red Blood Cells % 0.0 Immature Granulocytes # 0.020 Neutrophils # 1.8 Lymphocytes # 0.9 Monocytes # 0.7 Eosinophils # 0.1 Basophils # 0.0 Nucleated Red Blood Cells # 0.0 Sodium Level 140 Potassium Level 3.5 Chloride Level 106 Carbon Dioxide Level 25 Anion Gap 9 Blood Urea Nitrogen 8 Creatinine 0.53 L Est Glomerular Filtrat Rate mL/min > 60 Glucose Level 116 Calcium Level 8.5 Magnesium Level 1.8 Total Bilirubin 1.2 Direct Bilirubin 0.00 Indirect Bilirubin 1.2 H Aspartate Amino Transf (AST/SGOT) 95 H Alanine Aminotransferase (ALT/SGPT) 69 Alkaline Phosphatase 218 H Total Protein 6.7 Albumin 3.0 L Globulin 3.70 H Albumin/Globulin Ratio 0.81 Exam/Review of Systems Exam Vitals Vital Signs Date Temp Pulse Resp B/P (MAP) Pulse Ox O2 O2 Flow FiO2 Time Delivery Rate 02/07/19 98.7 76 18 135/69 99 Room Air 13:12 (91) 02/04/19 10.0 16:26 Intake and Output 02/06/19 02/06/19 02/07/19 1515:00 23:00 07:00 IntakeIntake Total 716 ml 1311.2 ml 1214 ml OutputOutput Total 400 ml 900 ml 1100 ml BalanceBalance 316 ml 411.2 ml 114 ml Results Results 24hrs Laboratory Tests Test 02/07/19 05:04 White Blood Count 3.5 #L Red Blood Count 3.20 L Hemoglobin 9.4 L Hematocrit 29.0 L Mean Corpuscular Volume 90.6 Mean Corpuscular Hemoglobin 29.4 Mean Corpuscular Hemoglobin Concent 32.4 Red Cell Distribution Width 21.4 H Platelet Count 54 #L Mean Platelet Volume Immature Granulocytes % 0.600 H Neutrophils % 49.9 Lymphocytes % 25.7 Monocytes % 20.9 H Eosinophils % 2.0 Basophils % 0.9 Nucleated Red Blood Cells % 0.0 Immature Granulocytes # 0.020 Neutrophils # 1.8 Lymphocytes # 0.9 Monocytes # 0.7 Eosinophils # 0.1 Basophils # 0.0 Nucleated Red Blood Cells # 0.0 Sodium Level 140 Potassium Level 3.5 Chloride Level 106 Carbon Dioxide Level 25 Anion Gap 9 Blood Urea Nitrogen 8 Creatinine 0.53 L Est Glomerular Filtrat Rate mL/min > 60 Glucose Level 116 Calcium Level 8.5 Magnesium Level 1.8 Total Bilirubin 1.2 Direct Bilirubin 0.00 Indirect Bilirubin 1.2 H Aspartate Amino Transf (AST/SGOT) 95 H Alanine Aminotransferase (ALT/SGPT) 69 Alkaline Phosphatase 218 H Total Protein 6.7 Albumin 3.0 L Globulin 3.70 H Albumin/Globulin Ratio 0.81 Medications Medication Current Medications Sodium Chloride 1,000 ml @ 100 mls/hr Q10H IV Last administered on 02/07/19 01:09; Admin Dose 100 MLS/HR; Start 02/02/19 at 15:20 IV Flush (NS 3 ml) 3 ml PER PROTOCOL IV ; Start 02/02/19 at 15:30 Ondansetron HCl (Zofran Inj) 4 mg Q6H PRN IV NAUSEA/VOMITING Last administered on 02/02/19 16:07; Admin Dose 4 MG; Start 02/02/19 at 15:30 Acetaminophen (Tylenol Tab) 650 mg Q6H PRN PO .PAIN 1-3 OR TEMP Last administered on 02/06/19at 23:02; Admin Dose 650 MG; Start 02/02/19 at 15:30 Docusate Sodium (Colace) 100 mg Q12H PRN PO .CONSTIPATION; Start 02/02/19 at 15:30 Magnesium Hydroxide (Milk Of Mag) 30 ml DAILY PRN PO .CONSTIPATION; Start 02/02/19 at 15:30 Multivitamins 10 ml/Thiamine HCl 100 mg/Folic Acid 1 mg/Sodium Chloride 1,011.2 ml @ 125 mls/ hr DAILY@09 IVPB Last administered on 02/07/19at 08:10; Admin Dose 125 MLS/HR; Start 02/02/19 at 15:30 Hydralazine HCl (Apresoline) 10 mg Q4H PRN IV SBP >170; Start 02/02/19 at 16:00 Lorazepam (Ativan) 2 mg Q2 PRN IV agitation, withdrawal Last administered on 4/6/19at 20:45; Admin Dose 2 MG; Start 02/04/19 at 13:00 Pantoprazole (Protonix Iv) 40 mg BID@,18 IV Last administered on 02/07/19 05:59; Admin Dose 40 MG; Start 02/04/19 at 18:00 Sucralfate (Carafate) 1 gm Q6 PO Last administered on 02/07/19 12:18; Admin Dose 1 GM; Start 02/04/19 at 18:00 Haloperidol (Haldol) 5 mg Q6H PRN IM agitation; Start 02/05/19 at 09:00 Chlordiazepoxide (Librium) 25 mg DAILY PO Last administered on 02/07/19 08:10; Admin Dose 25 MG; Start 02/06/19 at 09:00 Lactulose (Enulose) 20 gm Q8 PO Last administered on 02/07/19 13:09; Admin Dose 20 GM; Start 02/06/19 at 14:00 Rifaximin (Xifaxan) 550 mg BID PO Last administered on 02/07/19 08:10; Admin Dose 550 MG; Start 02/06/19 at 12:00 KIA SAUCEDA Feb 07, 2019 15:37
--- NOTE | 2019-02-07 18:37 | PN ---
Date/Time of Note Date/Time of Note DATE: 02/07/19 TIME: 18:37 Objective Vitals Vital Signs Date Temp Pulse Resp B/P (MAP) Pulse Ox O2 O2 Flow FiO2 Time Delivery Rate 02/07/19 98.7 76 18 135/69 99 Room Air 13:12 (91) 02/04/19 10.0 16:26 Intake and Output 02/06/19 02/06/19 02/07/19 1515:00 23:00 07:00 IntakeIntake Total 716 ml 1311.2 ml 1214 ml OutputOutput Total 400 ml 900 ml 1100 ml BalanceBalance 316 ml 411.2 ml 114 ml Results Result Diagram: 02/07/19 0504 02/07/19 0504 Medications Medications Current Medications Sodium Chloride 1,000 ml @ 100 mls/hr Q10H IV Last administered on 02/07/19at 01:09; Admin Dose 100 MLS/HR; Start 02/02/19 at 15:20 IV Flush (NS 3 ml) 3 ml PER PROTOCOL IV ; Start 02/02/19 at 15:30 Ondansetron HCl (Zofran Inj) 4 mg Q6H PRN IV NAUSEA/VOMITING Last administered on 02/02/19at 16:07; Admin Dose 4 MG; Start 02/02/19 at 15:30 Acetaminophen (Tylenol Tab) 650 mg Q6H PRN PO .PAIN 1-3 OR TEMP Last administered on 02/06/19at 23:02; Admin Dose 650 MG; Start 02/02/19 at 15:30 Docusate Sodium (Colace) 100 mg Q12H PRN PO .CONSTIPATION; Start 02/02/19 at 15:30 Magnesium Hydroxide (Milk Of Mag) 30 ml DAILY PRN PO .CONSTIPATION; Start 02/02/19 at 15:30 Multivitamins 10 ml/Thiamine HCl 100 mg/Folic Acid 1 mg/Sodium Chloride 1,011.2 ml @ 125 mls/ hr DAILY@09 IVPB Last administered on 02/07/19at 08:10; Admin Dose 125 MLS/HR; Start 02/02/19 at 15:30 Hydralazine HCl (Apresoline) 10 mg Q4H PRN IV SBP >170; Start 02/02/19 at 16:00 Lorazepam (Ativan) 2 mg Q2 PRN IV agitation, withdrawal Last administered on 02/05/19at 20:45; Admin Dose 2 MG; Start 02/04/19 at 13:00 Pantoprazole (Protonix Iv) 40 mg BID@06,18 IV Last administered on 02/07/19 17:16; Admin Dose 40 MG; Start 02/04/19 at 18:00 Sucralfate (Carafate) 1 gm Q6 PO Last administered on 02/07/19 17:16; Admin Dose 1 GM; Start 02/04/19 at 18:00 Haloperidol (Haldol) 5 mg Q6H PRN IM agitation; Start 02/05/19 at 09:00 Lactulose (Enulose) 20 gm Q8 PO Last administered on 02/07/19 13:09; Admin Dose 20 GM; Start 02/06/19 at 14:00 Rifaximin (Xifaxan) 550 mg BID PO Last administered on 02/07/19 08:10; Admin Dose 550 MG; Start 02/06/19 at 12:00 VTE Prophylaxis Risk score (from Ns)>0 risk: 2 SCD applied (from [facility] [place]): No SCD contraindication: other Lines/Catheters IV Catheter Type: Garcia in Place: No Assessment/Plan Hospital Course Subjective -Patient wishes to go home however the patient does not exhibit 100% insight into his medical condition and is extremely forgetful at times, explained to patient why most day and get stronger as he has severe mobility issues that are improving slowly. Objective Physical exam General: Patient is laying in bed and answers questions appropriately Mentation: Patient is alert and oriented but not necessarily to situation Head: Normocephalic atraumatic Eyes: EOMI, pupils reactive to light Neck: Supple, nontender, midline Respiratory: Clear to auscultation bilaterally Cardiovascular: regular rate, no obvious murmurs Gastrointestinal: non-tender to palpation, bowel sounds heard. Neurological: Moves all extremities spontaneously Skin: No new skin lesions Assessment/Plan 1. Acute hepatic encephalopathy - Patient in and out of confusion - GI on board and started on Rifaximin and lactulose. Will need to titrate the lactulose for 3-4 BMs daily. monitor for improvement in mentation - ammonia level noted 2. Acute alcohol intoxication - librium taper finished - Monitor for DTs - Ativan PRN - ETOH levels noted 3. Alcoholic hepatitis - LFTs trending downward - hepatitis panel negative - RUQ US shows severe hepatic steatosis - MRI results show hepatic steatosis with underlying cirrhosis which was discussed with patient. He states he will stop drink alcohol and drink juice 4. Anemia, ?blood loss - improving - no witnessed hematemesis since admission - GI on board and appreciate consultation. EGD performed with findings of ga stritis and gastropathy consistent with cirrhosis - iron levels noted -ppi/carafate 5. Severe thrombocytopenia - improving - s/p platelet transfusion 6. hypokalemia - replacing 7. alcohol abuse - 3-4 beers daily - cessation counseling offered 8. Disposition - Started on Rifaximin and Lactulose for hepatic encephalopathy - SW consulted given patient homeless and requested resources - Once mentation back to baseline, can d/c once mobility improves. ANJEL FNOTENOT Feb 07, 2019 18:37
[2019-02-07 20:16] VITALS: BP 133/79; PULSE 65; RESP 18
[2019-02-08] MEDS: SOD CHLORIDE 0.9% 1,000 ML IV SCH ×2 (01:20→06:17)
[2019-02-08 02:00] VITALS: BP 140/75; PULSE 73; RESP 19
[2019-02-08] MEDS: PANTOPRAZOLE 40 MG INJ IV SCH (06:17)
[2019-02-08] MEDS: LACTULOSE 30ML CUP PO SCH ×4 (06:17→23:35)
[2019-02-08] MEDS: SUCRALFATE 1 GM TAB PO SCH ×4 (06:17→23:35)
[2019-02-08 07:47] VITALS: BP 104/62; PULSE 51; RESP 51
[2019-02-08] MEDS: RIFAXIMIN 550 MG TAB PO SCH ×2 (08:56→21:05)
[2019-02-08] MEDS: MULTIVITAMINS 10 ML, THIAMINE 100 MG, FOLIC ACID 1 MG in SOD CHLORIDE 0.9% 1,000 ML IVPB SCH (08:56)
--- NOTE | 2019-02-08 10:47 | PN ---
Date/Time of Note Date/Time of Note DATE: 02/08/19 TIME: 10:33 Assessment/Plan VTE Prophylaxis Risk score (from [facility] [place])>0 risk: 2 SCD applied (from [facility] [place]): Yes Pharmacological prophylaxis: other Pharm contraindication: liver dx Lines/Catheters IV Catheter Type (from [facility]): Peripheral IV Urinary Cath still in place: No Assessment/Plan Assessment/Plan 1. Acute hepatic encephalopathy, improved on lactulose and rifaximin 2. Hematemesis, no recurrence, status post EGD 02/04/2019 with gastritis and hiatal hernia, on 3. Alcoholism with acute alcohol intoxication, improved, on banana bag 4. Alcoholic hepatitis, follow up with LFTs 5. Thrombocytopenia due to alcohol and liver disease, no active bleeding 6. Normocytic anemia, chronic with stable H/H 7. Homeless, social sciences professor for placement Result Diagram: 02/08/1937 02/08/19 0637 Results 24hrs Laboratory Tests Test 02/08/19 06:37 White Blood Count 4.6 #L Red Blood Count 3.34 L Hemoglobin 9.8 L Hematocrit 30.4 L Mean Corpuscular Volume 91.0 Mean Corpuscular Hemoglobin 29.3 Mean Corpuscular Hemoglobin Concent 32.2 Red Cell Distribution Width 21.5 H Platelet Count 62 L Mean Platelet Volume 11.6 H Immature Granulocytes % 0.400 Neutrophils % 46.4 Lymphocytes % 31.5 Monocytes % 19.1 H Eosinophils % 1.7 Basophils % 0.9 Nucleated Red Blood Cells % 0.0 Immature Granulocytes # 0.020 Neutrophils # 2.1 Lymphocytes # 1.5 Monocytes # 0.9 Eosinophils # 0.1 Basophils # 0.0 Nucleated Red Blood Cells # 0.0 Sodium Level 142 Potassium Level 3.7 Chloride Level 108 Carbon Dioxide Level 26 Anion Gap 8 Blood Urea Nitrogen 9 Creatinine 0.58 L Est Glomerular Filtrat Rate mL/min > 60 Glucose Level 120 Calcium Level 8.9 Magnesium Level 1.9 Total Bilirubin 1.5 H Direct Bilirubin 0.00 Indirect Bilirubin 1.5 H Aspartate Amino Transf (AST/SGOT) 96 H Alanine Aminotransferase (ALT/SGPT) 68 Alkaline Phosphatase 212 H Ammonia 39 H Total Protein 7.1 Albumin 3.3 Globulin 3.80 H Albumin/Globulin Ratio 0.86 Alpha Fetoprotein 2.08 Subjective 24 Hr Interval Summary Free Text/Dictation alert and oriented, no nausea or vomiting Exam/Review of Systems Exam Vitals Vital Signs Date Temp Pulse Resp B/P (MAP) Pulse Ox O2 O2 Flow FiO2 Time Delivery Rate 02/08/19 97.7 51 51 104/62 95 Room Air 07:47 (76) 02/04/19 10.0 16:26 Intake and Output 02/07/19 02/07/19 02/08/19 1515:00 23:00 07:00 IntakeIntake Total 281 ml 1011.2 ml 269 ml OutputOutput Total 700 ml 300 ml BalanceBalance -419 ml 1011.2 ml -31 ml Constitutional: alert, oriented, well developed Psych: no complaints, nl mood/affect Head: normocephalic, atraumatic Eyes: nl conjunctiva, EOMI, nl lids, nl sclera, PERRL ENMT: nl external ears & nose, nl lips & teeth, nl nasal mucosa & septum Neck: supple, non-tender Respiratory: clear to auscultation, normal air movement; No congested cough, No crackles/rales, No diminished breath sounds, No intercostal retraction, No labored breathing, No respirations, No tactile fremitus, No wheezing, No other Cardiovascular: regular rate and rhythm, nl pulses; No bruits, No diastolic murmur, No edema, No gallop, No irregular rhythm, No jugular venous distention (JVD), No murmurs/extra sounds, No rub, No systolic murmur, No S3, No S4, No other Gastrointestinal: soft, nl liver, spleen, non-tender Musculoskeletal: nl extremities to inspection Extremities: normal pulses; No calf tenderness, No cyanosis, No clubbing, No edema, No pitting pedal edema, No palpable cord, No tenderness, No other Neurological: CONTROL SYSTEMS DEVELOPER II-XII intact, nl mental status, nl speech, nl strength Results Results 24hrs Laboratory Tests Test 02/08/19 06:37 White Blood Count 4.6 #L Red Blood Count 3.34 L Hemoglobin 9.8 L Hematocrit 30.4 L Mean Corpuscular Volume 91.0 Mean Corpuscular Hemoglobin 29.3 Mean Corpuscular Hemoglobin Concent 32.2 Red Cell Distribution Width 21.5 H Platelet Count 62 L Mean Platelet Volume 11.6 H Immature Granulocytes % 0.400 Neutrophils % 46.4 Lymphocytes % 31.5 Monocytes % 19.1 H Eosinophils % 1.7 Basophils % 0.9 Nucleated Red Blood Cells % 0.0 Immature Granulocytes # 0.020 Neutrophils # 2.1 Lymphocytes # 1.5 Monocytes # 0.9 Eosinophils # 0.1 Basophils # 0.0 Nucleated Red Blood Cells # 0.0 Sodium Level 142 Potassium Level 3.7 Chloride Level 108 Carbon Dioxide Level 26 Anion Gap 8 Blood Urea Nitrogen 9 Creatinine 0.58 L Est Glomerular Filtrat Rate mL/min > 60 Glucose Level 120 Calcium Level 8.9 Magnesium Level 1.9 Total Bilirubin 1.5 H Direct Bilirubin 0.00 Indirect Bilirubin 1.5 H Aspartate Amino Transf (AST/SGOT) 96 H Alanine Aminotransferase (ALT/SGPT) 68 Alkaline Phosphatase 212 H Ammonia 39 H Total Protein 7.1 Albumin 3.3 Globulin 3.80 H Albumin/Globulin Ratio 0.86 Alpha Fetoprotein 2.08 Medications Medication Current Medications Sodium Chloride 1,000 ml @ 100 mls/hr Q10H IV Last administered on 02/08/19at 06:17; Admin Dose 100 MLS/HR; Start 02/02/19 at 15:20 IV Flush (NS 3 ml) 3 ml PER PROTOCOL IV ; Start 02/02/19 at 15:30 Ondansetron HCl (Zofran Inj) 4 mg Q6H PRN IV NAUSEA/VOMITING Last administered on 02/02/19at 16:07; Admin Dose 4 MG; Start 02/02/19 at 15:30 Acetaminophen (Tylenol Tab) 650 mg Q6H PRN PO .PAIN 1-3 OR TEMP Last administered on 02/06/19at 23:02; Admin Dose 650 MG; Start 02/02/19 at 15:30 Docusate Sodium (Colace) 100 mg Q12H PRN PO .CONSTIPATION; Start 02/02/19 at 15:30 Magnesium Hydroxide (Milk Of Mag) 30 ml DAILY PRN PO .CONSTIPATION; Start 02/02/19 at 15:30 Multivitamins 10 ml/Thiamine HCl 100 mg/Folic Acid 1 mg/Sodium Chloride 1,011.2 ml @ 125 mls/ hr DAILY@09 IVPB Last administered on 02/08/19at 08:56; Admin Dose 125 MLS/HR; Start 02/02/19 at 15:30 Hydralazine HCl (Apresoline) 10 mg Q4H PRN IV SBP >170; Start 02/02/19 at 16:00 Lorazepam (Ativan) 2 mg Q2 PRN IV agitation, withdrawal Last administered on 02/05/19at 20:45; Admin Dose 2 MG; Start 02/04/19 at 13:00 Pantoprazole (Protonix Iv) 40 mg BID@06,18 IV Last administered on 02/08/19at 06:17; Admin Dose 40 MG; Start 02/04/19 at 18:00 Sucralfate (Carafate) 1 gm Q6 PO Last administered on 02/08/19at 06:17; Admin Dose 1 GM; Start 02/04/19 at 18:00 Haloperidol (Haldol) 5 mg Q6H PRN IM agitation; Start 02/05/19 at 09:00 Lactulose (Enulose) 20 gm Q8 PO Last administered on 02/08/19at 06:17; Admin Dose 20 GM; Start 02/06/19 at 14:00 Rifaximin (Xifaxan) 550 mg BID PO Last administered on 02/08/19at 08:56; Admin Dose 550 MG; Start 02/06/19 at 12:00 JOSE MANUEL MAYS MD Feb 08, 2019 10:43
[2019-02-08 13:53] VITALS: BP 132/71; PULSE 69; RESP 69
[2019-02-08 14:39] VITALS: BP 127/74; PULSE 70; RESP 16
--- NOTE | 2019-02-08 16:05 | PN ---
Date/Time of Note Date/Time of Note DATE: 02/08/19 TIME: 15:57 Assessment/Plan VTE Prophylaxis Risk score (from Ns)>0 risk: 2 SCD applied (from Ns): Yes Pharmacological prophylaxis: other (scds) Lines/Catheters IV [facility] Type (from [facility] Peripheral IV Urinary Cath still in place: No Assessment/Plan Hospital Course Assessment: Hepatic encephalopathy Hematemesis Status post EGD 02/04/2019 -Gastritis -Hiatal hernia -Portal hypertensive gastropathy Alcoholic hepatitis- DF =15 Hepatic steatosis with suspected underlying cirrhosis. --AFP 2.08 Elevated LFTs with Indirect hyperbilirubinemia -Hepatitis panel negative -MRCP is negative for choledocholithiasis Pancytopenia- Improved Alcoholism - withdrawal Homelessness Plan: Continue current regimen 2 g sodium diet Pt will need to f/u as an out-pt with GI after discharge- ongoing of hepatic steatosis with suspected underlying cirrhosis. D/c planning process- pt is homeless with some forgetfulness, placement pending. Patient seen in collaboration with Dr. Reyes Subjective: Pt seems more alert than yesterday. alert and oriented x3 He denies abdominal pain, nausea, vomiting, hematemesis or melena. SW working on placement, PHYSICAL EXAMINATION: GENERAL: Alert & oriented x 3, in no acute distress, forgetful SKIN: No lesions HEAD: Normocephalic, atraumatic, no tenderness. EYES: Pupils equal reactive to light, no discharge. EARS/NOSE AND THROAT: Ears normal, nose normal NECK: Supple, no masses CHEST: Inspection within normal limits. CARDIOVASCULAR: Heart: Regular rate and rhythm RESPIRATORY: Lungs clear to auscultation GASTROINTESTINAL AND LIVER: Abdomen: Soft, non tenderness, non-distended, no hernias, no masses, no organomegaly, no ascites, no guarding, no rebound tenderness, normoactive bowel sounds. Rectal: Deferred. EXTREMITIES: No cyanosis, clubbing or edema. Result Diagram: 02/08/1937 02/08/19 0637 Results 24hrs Laboratory Tests Test 02/08/19 06:37 White Blood Count 4.6 #L Red Blood Count 3.34 L Hemoglobin 9.8 L Hematocrit 30.4 L Mean Corpuscular Volume 91.0 Mean Corpuscular Hemoglobin 29.3 Mean Corpuscular Hemoglobin Concent 32.2 Red Cell Distribution Width 21.5 H Platelet Count 62 L Mean Platelet Volume 11.6 H Immature Granulocytes % 0.400 Neutrophils % 46.4 Lymphocytes % 31.5 Monocytes % 19.1 H Eosinophils % 1.7 Basophils % 0.9 Nucleated Red Blood Cells % 0.0 Immature Granulocytes # 0.020 Neutrophils # 2.1 Lymphocytes # 1.5 Monocytes # 0.9 Eosinophils # 0.1 Basophils # 0.0 Nucleated Red Blood Cells # 0.0 Sodium Level 142 Potassium Level 3.7 Chloride Level 108 Carbon Dioxide Level 26 Anion Gap 8 Blood Urea Nitrogen 9 Creatinine 0.58 L Est Glomerular Filtrat Rate mL/min > 60 Glucose Level 120 Calcium Level 8.9 Magnesium Level 1.9 Total Bilirubin 1.5 H Direct Bilirubin 0.00 Indirect Bilirubin 1.5 H Aspartate Amino Transf (AST/SGOT) 96 H Alanine Aminotransferase (ALT/SGPT) 68 Alkaline Phosphatase 212 H Ammonia 39 H Total Protein 7.1 Albumin 3.3 Globulin 3.80 H Albumin/Globulin Ratio 0.86 Alpha Fetoprotein 2.08 Exam/Review of Systems Exam Vitals Vital Signs Date Temp Pulse Resp B/P (MAP) Pulse Ox O2 O2 Flow FiO2 Time Delivery Rate 02/08/19 97.7 70 16 127/74 97 Room Air 14:39 (91) 02/04/19 10.0 16:26 Intake and Output 02/07/19 02/07/19 02/08/19 1515:00 23:00 07:00 IntakeIntake Total 281 ml 1011.2 ml 269 ml OutputOutput Total 700 ml 300 ml BalanceBalance -419 ml 1011.2 ml -31 ml Results Results 24hrs Laboratory Tests Test 02/08/19 06:37 White Blood Count 4.6 #L Red Blood Count 3.34 L Hemoglobin 9.8 L Hematocrit 30.4 L Mean Corpuscular Volume 91.0 Mean Corpuscular Hemoglobin 29.3 Mean Corpuscular Hemoglobin Concent 32.2 Red Cell Distribution Width 21.5 H Platelet Count 62 L Mean Platelet Volume 11.6 H Immature Granulocytes % 0.400 Neutrophils % 46.4 Lymphocytes % 31.5 Monocytes % 19.1 H Eosinophils % 1.7 Basophils % 0.9 Nucleated Red Blood Cells % 0.0 Immature Granulocytes # 0.020 Neutrophils # 2.1 Lymphocytes # 1.5 Monocytes # 0.9 Eosinophils # 0.1 Basophils # 0.0 Nucleated Red Blood Cells # 0.0 Sodium Level 142 Potassium Level 3.7 Chloride Level 108 Carbon Dioxide Level 26 Anion Gap 8 Blood Urea Nitrogen 9 Creatinine 0.58 L Est Glomerular Filtrat Rate mL/min > 60 Glucose Level 120 Calcium Level 8.9 Magnesium Level 1.9 Total Bilirubin 1.5 H Direct Bilirubin 0.00 Indirect Bilirubin 1.5 H Aspartate Amino Transf (AST/SGOT) 96 H Alanine Aminotransferase (ALT/SGPT) 68 Alkaline Phosphatase 212 H Ammonia 39 H Total Protein 7.1 Albumin 3.3 Globulin 3.80 H Albumin/Globulin Ratio 0.86 Alpha Fetoprotein 2.08 Medications Medication Current Medications Sodium Chloride 1,000 ml @ 50 mls/hr Q20H IV Last administered on 02/08/19at 06:17; Admin Dose 100 MLS/HR; Start 02/02/19 at 15:20 IV Flush (NS 3 ml) 3 ml PER PROTOCOL IV ; Start 02/02/19 at 15:30 Ondansetron HCl (Zofran Inj) 4 mg Q6H PRN IV NAUSEA/VOMITING Last administered on 02/02/19at 16:07; Admin Dose 4 MG; Start 02/02/19 at 15:30 Acetaminophen (Tylenol Tab) 650 mg Q6H PRN PO .PAIN 1-3 OR TEMP Last administered on 02/06/19at 23:02; Admin Dose 650 MG; Start 02/02/19 at 15:30 Docusate Sodium (Colace) 100 mg Q12H PRN PO .CONSTIPATION; Start 02/02/19 at 15:30 Magnesium Hydroxide (Milk Of Mag) 30 ml DAILY PRN PO .CONSTIPATION; Start 02/02/19 at 15:30 Multivitamins 10 ml/Thiamine HCl 100 mg/Folic Acid 1 mg/Sodium Chloride 1,011.2 ml @ 125 mls/ hr DAILY@09 IVPB Last administered on 02/08/19at 08:56; Admin Dose 125 MLS/HR; Start 02/02/19 at 15:30 Hydralazine HCl (Apresoline) 10 mg Q4H PRN IV SBP >170; Start 02/02/19 at 16:00 Lorazepam (Ativan) 2 mg Q2 PRN IV agitation, withdrawal Last administered on 02/05/19at 20:45; Admin Dose 2 MG; Start 02/04/19 at 13:00 Sucralfate (Carafate) 1 gm Q6 PO Last administered on 02/08/19at 12:46; Admin Dose 1 GM; Start 02/04/19 at 18:00 Haloperidol (Haldol) 5 mg Q6H PRN IM agitation; Start 02/05/19 at 09:00 Lactulose (Enulose) 20 gm Q8 PO Last administered on 02/08/19at 13:50; Admin Dose 20 GM; Start 02/06/19 at 14:00 Rifaximin (Xifaxan) 550 mg BID PO Last administered on 02/08/19at 08:56; Admin Dose 550 MG; Start 02/06/19 at 12:00 Pantoprazole (Protonix Tab) 40 mg DAILY@06 PO ; Start 02/09/19 at 06:00 KIA SAUCEDA Feb 08, 2019 16:05
[2019-02-08 20:00] VITALS: BP 122/71; PULSE 71; RESP 19
[2019-02-09 02:00] VITALS: BP 129/80; PULSE 67; RESP 20
[2019-02-09] MEDS: LACTULOSE 30ML CUP PO SCH (05:41)
[2019-02-09] MEDS: SUCRALFATE 1 GM TAB PO SCH ×3 (05:41→17:14)
[2019-02-09] MEDS ORDERED: PANTOPRAZOLE (EC) 40 MG TAB PO SCH (06:00)
[2019-02-09] MEDS: SOD CHLORIDE 0.9% 1,000 ML IV SCH (07:20)
[2019-02-09 07:28] VITALS: BP 117/68; PULSE 62; RESP 16
[2019-02-09] MEDS: RIFAXIMIN 550 MG TAB PO SCH (08:14)
[2019-02-09] MEDS: MULTIVITAMINS 10 ML, THIAMINE 100 MG, FOLIC ACID 1 MG in SOD CHLORIDE 0.9% 1,000 ML IVPB SCH (09:21)
--- NOTE | 2019-02-09 11:55 | PN ---
Date/Time of Note Date/Time of Note DATE: 02/09/19 TIME: 11:51 Assessment/Plan VTE Prophylaxis Risk score (from Ns)>0 risk: 2 SCD applied (from Ns): No SCD contraindicated: other (scds) Pharmacological prophylaxis: other (scds) Lines/Catheters IV Catheter Type (from [facility]): Peripheral IV Urinary Cath still in place: No Assessment/Plan Hospital Course Assessment: Hepatic encephalopathy Hematemesis Status post EGD 02/04/2019 -Gastritis -Hiatal hernia -Portal hypertensive gastropathy Alcoholic hepatitis- DF =15 Hepatic steatosis with suspected underlying cirrhosis. --AFP 2.08 Elevated LFTs with Indirect hyperbilirubinemia -Hepatitis panel negative -MRCP is negative for choledocholithiasis Pancytopenia- Improved Alcoholism - withdrawal Homelessness Plan: Continue current regimen 2 g sodium diet Pt will need to f/u as an out-pt with GI after discharge- ongoing of hepatic steatosis with suspected underlying cirrhosis. Drop in HGB without overt signs of GI bleed- will continue to monitor labs while hospitalized D/c planning process- pt much more alert today- appears stable for out-pt management Patient seen in collaboration with Dr. Reyes Subjective: Pt seems more alert than yesterday. alert and oriented x3 He denies abdominal pain, nausea, vomiting, hematemesis or melena. No c/o n.v or abd pain. Discussed need to quit drinking alcohol. Pt verbalized understanding. He is much more awake alert and oriented today. Drop in HGB noted without overt signs of GI bleed. PHYSICAL EXAMINATION: GENERAL: Alert & oriented x 3, in no acute distress SKIN: No lesions HEAD: Normocephalic, atraumatic, no tenderness. EYES: Pupils equal reactive to light, no discharge. EARS/NOSE AND THROAT: Ears normal, nose normal NECK: Supple, no masses CHEST: Inspection within normal limits. CARDIOVASCULAR: Heart: Regular rate and rhythm RESPIRATORY: Lungs clear to auscultation GASTROINTESTINAL AND LIVER: Abdomen: Soft, non tenderness, non-distended, no hernias, no masses, no organomegaly, no ascites, no guarding, no rebound tenderness, normoactive bowel sounds. Rectal: Deferred. EXTREMITIES: No cyanosis, clubbing or edema. Result Diagram: 02/09/19 0537 02/09/19 0537 Results 24hrs Laboratory Tests Test 02/09/19 05:37 White Blood Count 3.4 #L Red Blood Count 2.96 L Hemoglobin 8.8 L Hematocrit 27.3 L Mean Corpuscular Volume 92.2 Mean Corpuscular Hemoglobin 29.7 Mean Corpuscular Hemoglobin Concent 32.2 Red Cell Distribution Width 21.4 H Platelet Count 67 L Mean Platelet Volume Immature Granulocytes % 0.600 H Neutrophils % 47.7 Lymphocytes % 26.7 Monocytes % 20.8 H Eosinophils % 2.7 Basophils % 1.5 Nucleated Red Blood Cells % 0.0 Immature Granulocytes # 0.020 Neutrophils # 1.6 Lymphocytes # 0.9 Monocytes # 0.7 Eosinophils # 0.1 Basophils # 0.1 Nucleated Red Blood Cells # 0.0 Sodium Level 140 Potassium Level 3.7 Chloride Level 108 Carbon Dioxide Level 29 Anion Gap 3 L Blood Urea Nitrogen 8 Creatinine 0.64 Est Glomerular Filtrat Rate mL/min > 60 Glucose Level 113 Calcium Level 8.3 L Magnesium Level 1.9 Total Bilirubin 1.3 Direct Bilirubin 0.00 Indirect Bilirubin 1.3 H Aspartate Amino Transf (AST/SGOT) 102 H Alanine Aminotransferase (ALT/SGPT) 70 H Alkaline Phosphatase 220 H Total Protein 6.2 Albumin 2.8 L Globulin 3.40 H Albumin/Globulin Ratio 0.82 Exam/Review of Systems Exam Vitals Vital Signs Date Temp Pulse Resp B/P (MAP) Pulse Ox O2 O2 Flow FiO2 Time Delivery Rate 02/09/19 98.6 62 16 117/68 97 Room Air 07:28 (84) Intake and Output 02/08/19 02/08/19 02/09/19 1515:00 23:00 07:00 IntakeIntake Total 1771.2 ml 500 ml BalanceBalance 1771.2 ml 500 ml Results Results 24hrs Laboratory Tests Test 02/09/19 05:37 White Blood Count 3.4 #L Red Blood Count 2.96 L Hemoglobin 8.8 L Hematocrit 27.3 L Mean Corpuscular Volume 92.2 Mean Corpuscular Hemoglobin 29.7 Mean Corpuscular Hemoglobin Concent 32.2 Red Cell Distribution Width 21.4 H Platelet Count 67 L Mean Platelet Volume Immature Granulocytes % 0.600 H Neutrophils % 47.7 Lymphocytes % 26.7 Monocytes % 20.8 H Eosinophils % 2.7 Basophils % 1.5 Nucleated Red Blood Cells % 0.0 Immature Granulocytes # 0.020 Neutrophils # 1.6 Lymphocytes # 0.9 Monocytes # 0.7 Eosinophils # 0.1 Basophils # 0.1 Nucleated Red Blood Cells # 0.0 Sodium Level 140 Potassium Level 3.7 Chloride Level 108 Carbon Dioxide Level 29 Anion Gap 3 L Blood Urea Nitrogen 8 Creatinine 0.64 Est Glomerular Filtrat Rate mL/min > 60 Glucose Level 113 Calcium Level 8.3 L Magnesium Level 1.9 Total Bilirubin 1.3 Direct Bilirubin 0.00 Indirect Bilirubin 1.3 H Aspartate Amino Transf (AST/SGOT) 102 H Alanine Aminotransferase (ALT/SGPT) 70 H Alkaline Phosphatase 220 H Total Protein 6.2 Albumin 2.8 L Globulin 3.40 H Albumin/Globulin Ratio 0.82 Medications Medication Current Medications Sodium Chloride 1,000 ml @ 50 mls/hr Q20H IV Last administered on 02/08/19at 06:17; Admin Dose 100 MLS/HR; Start 02/02/19 at 15:20 IV Flush (NS 3 ml) 3 ml PER PROTOCOL IV ; Start 02/02/19 at 15:30 Ondansetron HCl (Zofran Inj) 4 mg Q6H PRN IV NAUSEA/VOMITING Last administered on 02/02/19at 16:07; Admin Dose 4 MG; Start 02/02/19 at 15:30 Acetaminophen (Tylenol Tab) 650 mg Q6H PRN PO .PAIN 1-3 OR TEMP Last administered on 02/06/19at 23:02; Admin Dose 650 MG; Start 02/02/19 at 15:30 Docusate Sodium (Colace) 100 mg Q12H PRN PO .CONSTIPATION; Start 02/02/19 at 15:30 Magnesium Hydroxide (Milk Of Mag) 30 ml DAILY PRN PO .CONSTIPATION; Start 02/02/19 at 15:30 Multivitamins 10 ml/Thiamine HCl 100 mg/Folic Acid 1 mg/Sodium Chloride 1,011.2 ml @ 125 mls/ hr DAILY@09 IVPB Last administered on 02/09/19at 09:21; Admin Dose 125 MLS/HR; Start 02/02/19 at 15:30 Hydralazine HCl (Apresoline) 10 mg Q4H PRN IV SBP >170; Start 02/02/19 at 16:00 Lorazepam (Ativan) 2 mg Q2 PRN IV agitation, withdrawal Last administered on 4/6/19at 20:45; Admin Dose 2 MG; Start 02/04/19 at 13:00 Sucralfate (Carafate) 1 gm Q6 PO Last administered on 02/09/19 05:41; Admin Dose 1 GM; Start 02/04/19 at 18:00 Haloperidol (Haldol) 5 mg Q6H PRN IM agitation; Start 02/05/19 at 09:00 Rifaximin (Xifaxan) 550 mg BID PO Last administered on 02/09/19at 08:14; Admin Dose 550 MG; Start 02/06/19 at 12:00 Pantoprazole (Protonix Tab) 40 mg DAILY@06 PO Last administered on 02/09/19 05:41; Admin Dose 40 MG; Start 02/09/19 at 06:00 Lactulose (Enulose) 20 gm Q6 PO Last administered on 02/09/19 05:41; Admin Dose 20 GM; Start 02/08/19 at 18:00 KIA SAUCEDA Feb 09, 2019 11:55
[2019-02-09] MEDS ORDERED: LACT20SO2 PO (12:01)
[2019-02-09] MEDS ORDERED: RIFA550T4 PO (12:01)
[2019-02-09] MEDS ORDERED: SUCR1TAB35 PO (12:01)
[2019-02-09] MEDS ORDERED: PANT40TA4 PO (12:01)
--- NOTE | 2019-02-09 12:15 | DS ---
Date/Time of Note Date/Time of Note DATE: 02/09/19 TIME: 11:58 Discharge Summary Admission/Discharge Info Admit Date/Time Feb 02, 2019 at 14:21 Discharge Date/Time Discharge Diagnosis 1. Acute hepatic encephalopathy, improved on lactulose and rifaximin 2. Hematemesis, no recurrence, status post EGD 02/04/2019 with gastritis and hiatal hernia, on protonix and carafate 3. Alcoholism with acute alcohol intoxication, improved 4. Alcoholic hepatitis, follow up with GI 5. Thrombocytopenia due to alcohol and liver disease, no active bleeding 6. Normocytic anemia, chronic, follow up with PCP Hospital Course 53 yo M with no reported PMH presented to ED after found in his truck by family with suspicion of being intoxicated. Patient admits to drinking alcohol this am but unable to understand further information given patient continues to mumble. Patient denies drinking alcohol daily or any other substance use. 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 Admits to feeling restless and has been burping with small amount of vomit but denies any nausea. Patient denies any chest pain, shortness of breath, dizziness, palpitations, abdominal pain, or urinary issues. Alcohol level was 13 on admission. AST 161, ALT 80, Alk phos 179. Ammonia 45 on 02/04/2019. Patient is treated with IVF and supportive care, he is also on lactulose and rifaximin for hepatic encephalopathy. Symptoms improved. He is strongly advised to quit ETOH. He will continue on lactulose and rifaximin for hepatic encephalopathy and he will follow up with GI outpatient. Patient has possible hematemesis outside. that he got EGD on 02/04/2019 that revealed gastritis. He is on carafate and protonix. Patient has pancytopenia from alcohol and alcoholic liver disease. Clinically stable with last WBC 3,400, H/H 8.8/27.3, PLT 67,000. Iron level is 250, TIBC 293, with iron saturation 65%. Patient will follow up with PCP. Home Meds No Active Prescriptions or Reported Meds Follow-up Plan PCP and GI in one week Primary Care Provider Care Physician No Primary Pending Labs Laboratory Tests Test 02/09/19 05:37 White Blood Count 3.4 10^3/ul (4.8-10.8) Red Blood Count 2.96 10^6/ul (4.70-6.10) Hemoglobin 8.8 g/dl (14.0-18.0) Hematocrit 27.3 % (42.0-52.0) Mean Corpuscular Volume 92.2 fl (82.0-101.0) Mean Corpuscular Hemoglobin 29.7 pg (29.0-33.0) Mean Corpuscular Hemoglobin Concent 32.2 g/dl (32.0-37.0) Red Cell Distribution Width 21.4 % (11.5-14.5) Platelet Count 67 10^3/UL (140-415) Mean Platelet Volume fl (7.4-10.4) Immature Granulocytes % 0.600 % (0.001-0.429) Neutrophils % 47.7 % (39.0-77.0) Lymphocytes % 26.7 % (15.0-51.0) Monocytes % 20.8 % (0.0-11.0) Eosinophils % 2.7 % (0.0-7.0) Basophils % 1.5 % (0.0-2.0) Nucleated Red Blood Cells % 0.0 /100WBC (0.0-0.0) Immature Granulocytes # 0.020 10^3/ul (0.0-0.031) Neutrophils # 1.6 10^3/ul (1.6-7.5) Lymphocytes # 0.9 10^3/ul (0.8-2.9) Monocytes # 0.7 10^3/ul (0.3-0.9) Eosinophils # 0.1 10^3/ul (0.0-0.5) Basophils # 0.1 10^3/ul (0.0-0.1) Nucleated Red Blood Cells # 0.0 10^3/ul (0.0-0.0) Sodium Level 140 mmol/L (135-144) Potassium Level 3.7 mmol/L (3.5-5.1) Chloride Level 108 mmol/L (97-110) Carbon Dioxide Level 29 mmol/L (21-31) Anion Gap 3 (5-13) Blood Urea Nitrogen 8 mg/dl (7-20) Creatinine 0.64 mg/dl (0.61-1.24) Est Glomerular Filtrat Rate mL/min > 60 mL/min (>60) Glucose Level 113 mg/dl (70-220) Calcium Level 8.3 mg/dl (8.4-10.2) Magnesium Level 1.9 mg/dl (1.7-2.5) Total Bilirubin 1.3 mg/dl (0.2-1.3) Direct Bilirubin 0.00 mg/dl (0.00-0.20) Indirect Bilirubin 1.3 mg/dl (0-1.1) Aspartate Amino Transf (AST/SGOT) 102 IU/L (15-46) Alanine Aminotransferase (ALT/SGPT) 70 IU/L (13-69) Alkaline Phosphatase 220 IU/L (42-121) Total Protein 6.2 g/dl (6.1-8.1) Albumin 2.8 g/dl (3.3-4.9) Globulin 3.40 g/dl (1.3-3.2) Albumin/Globulin Ratio 0.82 JOSE MANUEL MAYS MD Feb 09, 2019 12:09
[2019-02-09 14:05] VITALS: BP 116/59; PULSE 86; RESP 16
[2019-02-09] MEDS ORDERED: LACTULOSE 30ML CUP PO SCH (21:00)
== END 2019-02-09 18:55 | disposition home or self-care (01) | DRG 441 ==
LOC: E/R 11:16 → 5EC 14:21
PROVIDERS: ADMIT Internal Medicine; ATTEND Internal Medicine
PROC: 30233R1 Transfusion of Nonautologous Platelets into Peripheral Vein, Percutaneous Approach (ICD-10-PCS; 2019-02-03)
PROC: 0DJ08ZZ Inspection of Upper Intestinal Tract, Via Natural or Artificial Opening Endoscopic (ICD-10-PCS; principal; 2019-02-04 15:30)
DX: K72.00 Acute and subacute hepatic failure without coma (principal); K29.71 Gastritis, unspecified, with bleeding; F10.239 Alcohol dependence with withdrawal, unspecified; D61.818 Other pancytopenia; K76.6 Portal hypertension; K70.30 Alcoholic cirrhosis of liver without ascites; K70.10 Alcoholic hepatitis without ascites; F10.229 Alcohol dependence with intoxication, unspecified; Z59.0 Homelessness; E87.6 Hypokalemia; K31.89 Other diseases of stomach and duodenum; K44.9 Diaphragmatic hernia without obstruction or gangrene; Y90.0 Blood alcohol level of less than 20 mg/100 ml; Z87.891 Personal history of nicotine dependence
CPT/HCPCS: 36415; 36430; 70450; 74181; 76705; 80053; 80307; 81001; 82105; 82140; 83540; 83735; 84100; 85025; 85610; 86038; 86255; 86644; 86704; 86709; 86803; 86850; 86900; 86901; 87340; 96374; 97110; 97116; 97162; 97165; 97530; C9113; J1630; J2060; J2405; J3411; J3475; J3480; J7030; P9035